=== PATIENT | female | born 1970 | race Caucasian/White ===

== ENCOUNTER → 2016-10-11 | Outpatient (CLI) | payer MEDICARE | LOC: MW.CHIM 08:00 | PROVIDERS: ATTEND Internal Medicine | DX: NODX10 (principal) ==

== ENCOUNTER → 2016-10-25 | Outpatient (CLI) | payer MEDICARE | PROVIDERS: ATTEND Nurse Practitioner Family | DX: F33.1 Major depressive disorder, recurrent, moderate (principal); F41.8 Other specified anxiety disorders | CPT/HCPCS: 99214 ==

== ENCOUNTER 2017-10-17 11:34 | Emergency (ER) | payer MEDICARE ==
--- NOTE | 2017-10-17 12:00 | EDM.PDOC ---
ED HPI GENERAL MEDICAL PROBLEM - General Chief Complaint: Eye Problems Stated Complaint: VISION ISSUES IN THE RT EYE SIDE Time Seen by Provider: 10/17/17 11:59 Source of Information: Reports: Patient - History of Present Illness INITIAL COMMENTS - FREE TEXT/NARRATIVE: HISTORY AND PHYSICAL: History of present illness: [Patient presents with visual change, she has a loss of peripheral vision both inferior and superior not a hemianopsia but certainly decreased peripheral vision she also describes flashing lights and circles of light in the periphery. She is noted to be noncompliant with her medication and Accu-Chek reveals a glucose over 500] electrolytes were managed here in the emergency room along with 2 L bolus and requiring 50 units of insulin final glucose was measured at 288 I did discussed patient case with Dr. Garzon ophthalmology , he would like to see the patient immediately to evaluate retinal the patent detachment she is currently stable with no fever nausea vomiting diarrhea constipation chest pain shortness breath headache dizziness palpitation no bowel or urine symptoms Review of systems: As per history of present illness and below otherwise all systems reviewed and negative. Past medical history: As per history of present illness and as reviewed below otherwise noncontributory. Surgical history: As per history of present illness and as reviewed below otherwise noncontributory. Social history: No reported history of drug or alcohol abuse. Family history: As per history of present illness and as reviewed below otherwise noncontributory. Physical exam: HEENT: Atraumatic, normocephalic, pupils reactive, negative for conjunctival pallor or scleral icterus, mucous membranes moist, throat clear, neck supple, nontender, trachea midline. Lungs: Clear to auscultation, breath sounds equal bilaterally, chest nontender. Heart: S1S2, regular, negative for clicks, rubs, or JVD. Abdomen: Soft, nondistended, nontender. Negative for masses or hepatosplenomegaly. Negative for costovertebral tenderness. Pelvis: Stable nontender. Genitourinary: Deferred. Rectal: Deferred. Extremities: Atraumatic, negative for cords or calf pain. Neurovascular unremarkable. Neuro: Awake, alert, oriented. Cranial nerves II through XII unremarkable. Cerebellum unremarkable. Motor and sensory unremarkable throughout. Exam nonfocal. Diagnostics: [Head CT no contrast Accu-Chek CBC CMP troponin UA EKG Chest 1 view ] Therapeutics: [ saline bolus 2 Regular insulin 10 units subcutaneous/10 units IV Accu-Chek greater than 500 ] Regular insulin 10 units subcutaneous/10 units IV repeated Accu-Chek 476 Patient goal travel directly over to [facility] to see Dr. Garzon, she may return to ER as needed otherwise she will have follow-up appointment with her primary is already scheduled for next week, patient encouraged take her medication as directed Impression: Rule out retinal detachment [ hyperglycemia-improved Medication noncompliance] Definitive disposition and diagnosis as appropriate pending reevaluation and review of above. Headache Pain Score (Numeric/FACES): 5 - Related Data Allergies Allergy/AdvReac Type Severity Reaction Status Date / Time bupropion HCl Allergy Bradycardia Verified 10/17/17 11:48 [From Wellbutrin] erythromycin base Allergy Stomach Verified 10/17/17 11:48 [Erythromycin Base] Ache lisinopril Allergy Tachycardia Verified 10/17/17 11:48 Home Meds: Home Meds Dasatinib [Sprycel] 100 mg PO DAILY 02/16/16 [History] Insulin Detemir [Levemir] 28 unit SUBCUT BID 02/16/16 [History] Pregabalin [Lyrica] 2 tab PO DAILY 02/16/16 [History] metFORMIN HCl [Metformin HCl ER] 1,000 mg PO BID 02/16/16 [History] Exenatide Microspheres [Bydureon Pen] 2 mg SQ WEEKLY 02/17/16 [History] Losartan [Cozaar] 50 mg PO DAILY 02/17/16 [History] HYDROmorphone [Dilaudid] 1 - 4 tab PO DAILY PRN 09/02/16 [History] Mirtazapine 45 mg PO DAILY 10/17/17 [History] Past Medical History HEENT History: Reports: Impaired Vision Other HEENT History: uses eyeglasses Cardiovascular History: Reports: High Cholesterol, Hypertension Gastrointestinal History: Reports: Cholelithiasis, Gastritis Genitourinary History: Reports: Renal Calculus 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 OB/BYN History: 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 in July 2012 Musculoskeletal History: Reports: Arthritis, Back Pain, Chronic Neurological History: Reports: Neuropathy, Peripheral Other Neuro History: peripheral neuropathy Psychiatric History: Reports: Depression Endocrine/Metabolic History: Reports: Diabetes, Type II Oncologic (Cancer) History: Reports: Leukemia Dermatologic History: 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 (See Below) Other Dermatologic History: santiago - Infectious Disease History Infectious Disease History: Reports: Chicken Pox - Past Surgical History HEENT Surgical History: Reports: Cataract Surgery GI Surgical History: Reports: Cholecystectomy, Hernia, Abdominal Social & Family History - Family History Family Medical History: Noncontributory Neurological: Reports: CVA Endocrine/Metabolic: Reports: Diabetes, type II - Tobacco Use Smoking Status *Q: Never Smoker Second Hand Smoke Exposure: No - Caffeine Use Caffeine Use: Reports: None - Alcohol Use Days Per Week of Alcohol Use: 0 Number of Drinks Per Day: 0 Total Drinks Per Week: 0 - Recreational Drug Use Recreational Drug Use: No Drug Use in Last 12 Months: No ED ROS GENERAL - Review of Systems Review Of Systems: ROS reveals no pertinent complaints other than HPI. ED EXAM GENERAL W FULL EYE - Physical Exam Exam: See Below Course - Vital Signs Last Recorded V/S: Last Vital Signs Temp 96.1 F 10/17/17 11:46 Pulse 109 H 10/17/17 15:49 Resp 18 10/17/17 15:49 BP 135/85 10/17/17 15:49 Pulse Ox 95 10/17/17 15:49 - Orders/Labs/Meds Orders: Active Orders 24 hr Category Date Time Status Accu Check [Blood Glucose Check, Bedside] [RC] ONETIME Care 10/17/17 11:59 Active EKG Documentation Completion [RC] STAT Care 10/17/17 12:06 Active UA W/MICROSCOPIC [URIN] Stat Lab 10/17/17 14:19 Ordered Labs: Laboratory Tests 10/17/17 10/17/17 10/17/17 Range/Units 12:02 12:09 12:09 WBC 8.97 (4.0-11.0) K/uL RBC 4.90 (4.30-5.90) M/uL Hgb 14.6 (12.0-16.0) g/dL Hct 42.1 (36.0-46.0) % MCV 85.9 (80.0-98.0) fL MCH 29.8 (27.0-32.0) pg MCHC 34.7 (31.0-37.0) g/dL RDW Std Deviation 43.3 (28.0-62.0) fl RDW Coeff of Amol 14 (11.0-15.0) % Plt Count 205 (150-400) K/uL MPV 11.10 (7.40-12.00) fL Add Manual Diff YES Neutrophils % (Manual) 56 (48.0-80.0) % Band Neutrophils % 3 % Lymphocytes % (Manual) 28 (16.0-40.0) % Monocytes % (Manual) 3 (0.0-15.0) % Eosinophils % (Manual) 8 H (0.0-7.0) % Basophils % (Manual) 2 H (0.0-1.5) % Nucleated RBC % 0.0 /100WBC Absolute Seg Neuts 5.0 (1.4-5.7) Band Neutrophils # 0.3 Lymphocytes # (Manual) 2.5 H (0.6-2.4) Monocytes # (Manual) 0.3 (0.0-0.8) Eosinophils # (Manual) 0.7 (0.0-0.7) Basophils # (Manual) 0.2 H (0.0-0.1) Nucleated RBCs # 0 K/uL Sodium 126 L (136-145) mmol/L Potassium 4.6 (3.5-5.1) mmol/L Chloride 91 L (98-107) mmol/L Carbon Dioxide 20.5 L (21.0-32.0) mmol/L BUN 10 (7.0-18.0) mg/dL Creatinine 0.9 (0.6-1.0) mg/dL Est Cr Clr Drug Dosing TNP Estimated GFR (MDRD) > 60.0 ml/min Glucose 663 H* (74-106) mg/dL POC Glucose > 500 H (60-110) mg/dL Calcium 8.7 (8.5-10.1) mg/dL Total Bilirubin 0.4 (0.2-1.0) mg/dL AST 47 H (15-37) IU/L ALT 62 (14-63) IU/L Alkaline Phosphatase 191 H (46-116) U/L Troponin I < 0.050 (0.000-0.056) ng/mL Total Protein 6.4 (6.4-8.2) g/dL Albumin 3.1 L (3.4-5.0) g/dL Globulin 3.3 (2.0-3.5) g/dL Albumin/Globulin Ratio 0.9 L (1.3-2.8) Urine Color Urine Appearance Urine pH (5.0-8.0) Ur Specific [place] (1.001-1.035) Urine Protein (NEGATIVE) mg/dL Urine Glucose (UA) (NEGATIVE) mg/dL Urine Ketones (NEGATIVE) mg/dL Urine Occult Blood (NEGATIVE) Urine Nitrite (NEGATIVE) Urine Bilirubin (NEGATIVE) Urine Urobilinogen (<2.0) EU/dL Ur Leukocyte Esterase (NEGATIVE) Urine RBC (0-2/HPF) Urine WBC (0-5/HPF) Ur Epithelial Cells (NONE-FEW) Urine Bacteria (NEGATIVE) 10/17/17 10/17/17 10/17/17 Range/Units 12:49 13:25 13:58 WBC (4.0-11.0) K/uL RBC (4.30-5.90) M/uL Hgb (12.0-16.0) g/dL Hct (36.0-46.0) % MCV (80.0-98.0) fL MCH (27.0-32.0) pg MCHC (31.0-37.0) g/dL RDW Std Deviation (28.0-62.0) fl RDW Coeff of Amol (11.0-15.0) % Plt Count (150-400) K/uL MPV (7.40-12.00) fL Add Manual Diff Neutrophils % (Manual) (48.0-80.0) % Band Neutrophils % % Lymphocytes % (Manual) (16.0-40.0) % Monocytes % (Manual) (0.0-15.0) % Eosinophils % (Manual) (0.0-7.0) % Basophils % (Manual) (0.0-1.5) % Nucleated RBC % /100WBC Absolute Seg Neuts (1.4-5.7) Band Neutrophils # Lymphocytes # (Manual) (0.6-2.4) Monocytes # (Manual) (0.0-0.8) Eosinophils # (Manual) (0.0-0.7) Basophils # (Manual) (0.0-0.1) Nucleated RBCs # K/uL Sodium (136-145) mmol/L Potassium (3.5-5.1) mmol/L Chloride (98-107) mmol/L Carbon Dioxide (21.0-32.0) mmol/L BUN (7.0-18.0) mg/dL Creatinine (0.6-1.0) mg/dL Est Cr Clr Drug Dosing Estimated GFR (MDRD) ml/min Glucose (74-106) mg/dL POC Glucose 476 H 410 H 336 H (60-110) mg/dL Calcium (8.5-10.1) mg/dL Total Bilirubin (0.2-1.0) mg/dL AST (15-37) IU/L ALT (14-63) IU/L Alkaline Phosphatase (46-116) U/L Troponin I (0.000-0.056) ng/mL Total Protein (6.4-8.2) g/dL Albumin (3.4-5.0) g/dL Globulin (2.0-3.5) g/dL Albumin/Globulin Ratio (1.3-2.8) Urine Color Urine Appearance Urine pH (5.0-8.0) Ur Specific [place] (1.001-1.035) Urine Protein (NEGATIVE) mg/dL Urine Glucose (UA) (NEGATIVE) mg/dL Urine Ketones (NEGATIVE) mg/dL Urine Occult Blood (NEGATIVE) Urine Nitrite (NEGATIVE) Urine Bilirubin (NEGATIVE) Urine Urobilinogen (<2.0) EU/dL Ur Leukocyte Esterase (NEGATIVE) Urine RBC (0-2/HPF) Urine WBC (0-5/HPF) Ur Epithelial Cells (NONE-FEW) Urine Bacteria (NEGATIVE) 10/17/17 10/17/17 10/17/17 Range/Units 14:19 14:32 15:47 WBC (4.0-11.0) K/uL RBC (4.30-5.90) M/uL Hgb (12.0-16.0) g/dL Hct (36.0-46.0) % MCV (80.0-98.0) fL MCH (27.0-32.0) pg MCHC (31.0-37.0) g/dL RDW Std Deviation (28.0-62.0) fl RDW Coeff of Amol (11.0-15.0) % Plt Count (150-400) K/uL MPV (7.40-12.00) fL Add Manual Diff Neutrophils % (Manual) (48.0-80.0) % Band Neutrophils % % Lymphocytes % (Manual) (16.0-40.0) % Monocytes % (Manual) (0.0-15.0) % Eosinophils % (Manual) (0.0-7.0) % Basophils % (Manual) (0.0-1.5) % Nucleated RBC % /100WBC Absolute Seg Neuts (1.4-5.7) Band Neutrophils # Lymphocytes # (Manual) (0.6-2.4) Monocytes # (Manual) (0.0-0.8) Eosinophils # (Manual) (0.0-0.7) Basophils # (Manual) (0.0-0.1) Nucleated RBCs # K/uL Sodium (136-145) mmol/L Potassium (3.5-5.1) mmol/L Chloride (98-107) mmol/L Carbon Dioxide (21.0-32.0) mmol/L BUN (7.0-18.0) mg/dL Creatinine (0.6-1.0) mg/dL Est Cr Clr Drug Dosing Estimated GFR (MDRD) ml/min Glucose (74-106) mg/dL POC Glucose 288 H 253 H (60-110) mg/dL Calcium (8.5-10.1) mg/dL Total Bilirubin (0.2-1.0) mg/dL AST (15-37) IU/L ALT (14-63) IU/L Alkaline Phosphatase (46-116) U/L Troponin I (0.000-0.056) ng/mL Total Protein (6.4-8.2) g/dL Albumin (3.4-5.0) g/dL Globulin (2.0-3.5) g/dL Albumin/Globulin Ratio (1.3-2.8) Urine Color YELLOW Urine Appearance SLT CLOUDY Urine pH 5.0 (5.0-8.0) Ur Specific [place] 1.010 (1.001-1.035) Urine Protein 100 (NEGATIVE) mg/dL Urine Glucose (UA) >=1000 (NEGATIVE) mg/dL Urine Ketones NEGATIVE (NEGATIVE) mg/dL Urine Occult Blood SMALL H (NEGATIVE) Urine Nitrite NEGATIVE (NEGATIVE) Urine Bilirubin NEGATIVE (NEGATIVE) Urine Urobilinogen 0.2 (<2.0) EU/dL Ur Leukocyte Esterase NEGATIVE (NEGATIVE) Urine RBC 2-3 (0-2/HPF) Urine WBC 0-1 (0-5/HPF) Ur Epithelial Cells FEW (NONE-FEW) Urine Bacteria RARE (NEGATIVE) Meds: Medications Discontinued Medications Generic Name Dose Route Start Last Admin Trade Name Mayi PRN Reason Stop Dose Admin Sodium Chloride 1,000 mls @ 999 mls/hr 10/17/17 12:06 10/17/17 12:21 Normal Saline IV 10/17/17 13:06 999 mls/hr STAT ONE Administration Sodium Chloride 1,000 mls @ 999 mls/hr 10/17/17 12:49 10/17/17 12:55 Normal Saline IV 10/17/17 13:49 999 mls/hr STAT ONE Administration Insulin Human Regular 10 unit 10/17/17 12:06 10/17/17 12:18 Novolin R IVPUSH 10/17/17 12:07 10 units ONETIME ONE Administration Protocol Insulin Human Regular 10 unit 10/17/17 12:07 10/17/17 12:18 Novolin R SUBCUT 10/17/17 12:08 10 units NOW STA Administration Protocol Insulin Human Regular 10 unit 10/17/17 12:49 10/17/17 12:56 Novolin R IVPUSH 10/17/17 12:50 10 units ONETIME ONE Administration Protocol Insulin Human Regular 10 unit 10/17/17 12:50 10/17/17 12:56 Novolin R SUBCUT 10/17/17 12:51 10 units NOW STA Administration Protocol Insulin Human Regular 10 unit 10/17/17 13:51 10/17/17 13:58 Novolin R IVPUSH 10/17/17 13:52 10 units ONETIME ONE Administration Protocol Departure - Departure Time of Disposition: 15:58 Disposition: DC/Tfer to Other 70 Condition: Fair Clinical Impression: Hyperglycemia, Visual changes - Discharge Information Referrals: Estee Valles EQUIPMENT MAINTENANCE TECH [Primary Care Provider] - Forms: ED Department Discharge Additional Instructions: Proceed directly over to [facility] Dr. Garzon ophthalmology to evaluate for possible retinal detachment as discussed The following information is given to patients seen in the emergency department who are being discharged to home. This information is to outline your options for follow-up care. We provide all patients seen in our emergency department with a follow-up referral. The need for follow-up, as well as the timing and circumstances, are variable depending upon the specifics of your emergency department visit. If you don't have a primary care physician on staff, we will provide you with a referral. We always advise you to contact your personal physician following an emergency department visit to inform them of the circumstance of the visit and for follow-up with them and/or the need for any referrals to a consulting specialist. The emergency department will also refer you to a specialist when appropriate. This referral assures that you have the opportunity for follow-up care with a specialist. All of these measure are taken in an effort to provide you with optimal care, which includes your follow-up. Under all circumstances we always encourage you to contact your private physician who remains a resource for coordinating your care. When calling for follow-up care, please make the office aware that this follow-up is from your recent emergency room visit. If for any reason you are refused follow-up, please contact the [facility] emergency department at and asked to speak to the emergency department charge nurse. - My Orders Last 24 Hours: My Active Orders 10/17/17 11:59 Accu Check [Blood Glucose Check, Bedside] [RC] ONETIME 10/17/17 12:06 EKG Documentation Completion [RC] STAT 10/17/17 14:19 UA W/MICROSCOPIC [URIN] Stat - Assessment/Plan Last 24 Hours: My Active Orders 10/17/17 11:59 Accu Check [Blood Glucose Check, Bedside] [RC] ONETIME 10/17/17 12:06 EKG Documentation Completion [RC] STAT 10/17/17 14:19 UA W/MICROSCOPIC [URIN] Stat
[2017-10-17] MEDS ORDERED: Insulin Regular, Human 100 Units/ML 10 ML Vial IVPUSH ONE ×3 (12:06→13:51)
[2017-10-17] MEDS ORDERED: Sodium Chloride 0.9% 1,000 ML IV ONE ×2 (12:06→12:49)
[2017-10-17] MEDS ORDERED: Insulin Regular, Human 100 Units/ML 10 ML Vial SUBCUT STA ×2 (12:07→12:50)
[2017-10-17 13:06] LABS: CHLORIDE,CL 91 mmol/L (98-107)
--- NOTE | 2017-10-17 13:48 | CT ---
EXAMINATION: Non contrast CT head. Coronal and sagittal reformats. HISTORY: Pain FINDINGS: No evidence of intra or extra axial hemorrhage, mass, midline shift, hydrocephalus or edema. No hypoattenuation changes in the major vascular territories to suggest acute infarct. No abnormal intracranial calcifications are detected. No evidence of substantial vascular calcificat ions. Large mucous retention cyst within the right maxillary sinus. Mastoid air cells and middle ears are c lear. Orbits and globes are symmetric. Pituitary fossa appears unremarkable. Calvarium is intact. No evidence of skull fracture. IMPRESSION: 1. No acute intracranial findings. 2. Right maxillary mucous retention cyst.
--- NOTE | 2017-10-17 13:53 | CR ---
EXAMINATION: PA chest radiograph. HISTORY: Pain. FINDINGS: The trachea is midline. The cardiomediastinal silhouette is within normal limits. No pulmonary infilt rates, effusions or pneumothorax. Old calcified granuloma in the right upper lobe. Osseous structures appear unremarkable. IMPRESSION: No acute cardiopulmonary process.
[2017-10-17 14:31] LABS: SODIUM,NA 126 mmol/L (136-145)
[2017-10-17 18:41] VITALS: BP 124/77
== END 2017-10-17 16:30 | disposition other institution (70) ==
LOC: MW.ED 11:34
DX: E11.65 Type 2 diabetes mellitus with hyperglycemia (principal); H53.9 Unspecified visual disturbance; E11.42 Type 2 diabetes mellitus with diabetic polyneuropathy; E78.00 Pure hypercholesterolemia, unspecified; I10 Essential (primary) hypertension; Z91.19 Patient's noncompliance with other medical treatment and regimen; Z88.8 Allergy status to other drugs, medicaments and biological substances; Z88.1 Allergy status to other antibiotic agents; Z79.4 Long term (current) use of insulin; Z79.899 Other long term (current) drug therapy; Z79.891 Long term (current) use of opiate analgesic
CPT/HCPCS: 70450; 71045; 80053; 81001; 82962; 84484; 85025; 93005; 96361; 96372; 96374; 96376; 99285; J1815; J7040; 99283

== ENCOUNTER 2017-10-19 10:56 | Inpatient (IN) | payer MEDICARE ==
[2017-10-19] MEDS ORDERED: Ondansetron 4 MG/2 ML SDV IVPUSH ONE (11:07)
[2017-10-19] MEDS ORDERED: Sodium Chloride 0.9% 1,000 ML IV ONE (11:07)
[2017-10-19] MEDS ORDERED: Insulin Regular, Human 100 Units/ML 10 ML Vial IVPUSH ONE ×2 (11:20→12:05)
[2017-10-19] MEDS ORDERED: Insulin Regular, Human 100 Units/ML 10 ML Vial SUBCUT STA (11:20)
[2017-10-19] MEDS ORDERED: Ondansetron 4 MG/2 ML SDV ONE (11:21)
--- NOTE | 2017-10-19 11:23 | EDM.PDOC ---
ED HPI GENERAL MEDICAL PROBLEM - General Chief Complaint: Headache Stated Complaint: HEADACHES, PASSING OUT Time Seen by Provider: 10/19/17 11:21 Source of Information: Reports: Patient - History of Present Illness INITIAL COMMENTS - FREE TEXT/NARRATIVE: HISTORY AND PHYSICAL: History of present illness: Patient with history of uncontrolled diabetes and hyponatremia presents as above She was in a few days ago with visual symptoms I did correct her glucose and she followe with ophthalmology to rule out retinal detachment, she has been cleared from this standpoint. However she presents with headache dizziness and a fall today no fever vomiting chills sweats no chest pain shortness of breath palpitation no bowel or urine symptoms Review of systems: As per history of present illness and below otherwise all systems reviewed and negative. Past medical history: As per history of present illness and as reviewed below otherwise noncontributory. Surgical history: As per history of present illness and as reviewed below otherwise noncontributory. Social history: No reported history of drug or alcohol abuse. Family history: As per history of present illness and as reviewed below otherwise noncontributory. Physical exam: HEENT: Atraumatic, normocephalic, pupils reactive, negative for conjunctival pallor or scleral icterus, mucous membranes moist, throat clear, neck supple, nontender, trachea midline. Lungs: Clear to auscultation, breath sounds equal bilaterally, chest nontender. Heart: S1S2, regular, negative for clicks, rubs, or JVD. Abdomen: Soft, nondistended, nontender. Negative for masses or hepatosplenomegaly. Negative for costovertebral tenderness. Pelvis: Stable nontender. Genitourinary: Deferred. Rectal: Deferred. Extremities: Atraumatic, negative for cords or calf pain. Neurovascular unremarkable. Neuro: Awake, alert, oriented. Cranial nerves II through XII unremarkable. Cerebellum unremarkable. Motor and sensory unremarkable throughout. Exam nonfocal. Diagnostics: [ Accu-Chek greater than 500 CBC CMP troponin EKG Chest 1 view ABG ] Therapeutics: [Liter normal saline bolus Insulin 10 units IV/10 units subcutaneous Accu-Chek remains greater than 530 minutes after 20 units Insulin 10/10 repeated ] Impression: [ hyperglycemia dehydration Chronic history of baseline ] Definitive disposition and diagnosis as appropriate pending reevaluation and review of above. Treatments POSSUM TRAPPER: Reports: Acetaminophen Posterior Headache Pain Score (Numeric/FACES): 10 - Related Data Allergies Allergy/AdvReac Type Severity Reaction Status Date / Time bupropion HCl Allergy Bradycardia Verified 10/17/17 11:48 [From Wellbutrin] erythromycin base Allergy Stomach Verified 10/17/17 11:48 [Erythromycin Base] Ache lisinopril Allergy Tachycardia Verified 10/17/17 11:48 Home Meds: Home Meds Dasatinib [Sprycel] 100 mg PO DAILY 02/16/16 [History] metFORMIN HCl [Metformin HCl ER] 1,000 mg PO BID 02/16/16 [History] Losartan [Cozaar] 50 mg PO DAILY 02/17/16 [History] Mirtazapine 45 mg PO DAILY 10/17/17 [History] Past Medical History HEENT History: Reports: Impaired Vision Other HEENT History: uses eyeglasses Cardiovascular History: Reports: High Cholesterol, Hypertension Gastrointestinal History: Reports: Cholelithiasis, Gastritis Genitourinary History: Reports: Renal Calculus 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 OB/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 History: 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 in July 2012 Musculoskeletal History: Reports: Arthritis, Back Pain, Chronic Neurological History: Reports: Neuropathy, Peripheral Other Neuro History: peripheral neuropathy Psychiatric History: Reports: Anxiety, Depression Endocrine/Metabolic History: Reports: Diabetes, Type II Other Endocrine/Metabolic History: pt states it is very uncontrolled Oncologic (Cancer) History: Reports: Leukemia Dermatologic History: 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 (See Below) Other Dermatologic History: santiago - Infectious Disease History Infectious Disease History: Reports: Chicken Pox - Past Surgical History HEENT Surgical History: Reports: Cataract Surgery GI Surgical History: Reports: Cholecystectomy, Hernia, Abdominal Other GI Surgeries/Procedures: hernia surgery x2 Social & Family History - Family History Family Medical History: Noncontributory Neurological: Reports: CVA Endocrine/Metabolic: Reports: Diabetes, type II - Tobacco Use Smoking Status *Q: Former Smoker Years of Tobacco use: 1 Packs/Tins Daily: 0.5 Used Tobacco, but Quit: Yes Month/Year Tobacco Last Used: 10/2015 Second Hand Smoke Exposure: No - Caffeine Use Caffeine Use: Reports: Coffee - Alcohol Use Days Per Week of Alcohol Use: 0 Number of Drinks Per Day: 0 Total Drinks Per Week: 0 - Recreational Drug Use Recreational Drug Use: No Drug Use in Last 12 Months: No ED ROS GENERAL - Review of Systems Review Of Systems: ROS reveals no pertinent complaints other than HPI. ED EXAM, GENERAL - Physical Exam Exam: See Below Course - Vital Signs Last Recorded V/S: Last Vital Signs Temp 97.9 F 10/19/17 10:59 Pulse 127 H 10/19/17 10:59 Resp 22 H 10/19/17 10:59 BP 170/104 H 10/19/17 10:59 Pulse Ox 100 10/19/17 10:59 - Orders/Labs/Meds Orders: Active Orders 24 hr Category Date Time Status Accu Check [Blood Glucose Check, Bedside] [RC] ONETIME Care 10/19/17 11:08 Active UA W/MICROSCOPIC [URIN] Stat Lab 10/19/17 11:07 Ordered Insulin Regular, Human [NovoLIN R] Med 10/19/17 17:00 Active 10 unit SUBCUT QIDACANDBED Medication Orders Insulin Human Regular (Novolin R) 10 unit SUBCUT QIDACANDBED COUNT INCLUDES THE [facility]; Protocol Labs: Laboratory Tests 10/19/17 10/19/17 10/19/17 Range/Units 11:10 11:10 11:25 WBC 9.81 (4.0-11.0) K/uL RBC 5.08 (4.30-5.90) M/uL Hgb 14.9 (12.0-16.0) g/dL Hct 44.8 (36.0-46.0) % MCV 88.2 (80.0-98.0) fL MCH 29.3 (27.0-32.0) pg MCHC 33.3 (31.0-37.0) g/dL RDW Std Deviation 44.6 (28.0-62.0) fl RDW Coeff of Amol 14 (11.0-15.0) % Plt Count 224 (150-400) K/uL MPV 10.70 (7.40-12.00) fL Add Manual Diff YES Neutrophils % (Manual) 54 (48.0-80.0) % Band Neutrophils % 7 % Lymphocytes % (Manual) 31 (16.0-40.0) % Monocytes % (Manual) 2 (0.0-15.0) % Eosinophils % (Manual) 3 (0.0-7.0) % Basophils % (Manual) 3 H (0.0-1.5) % Nucleated RBC % 0.0 /100WBC Absolute Seg Neuts 5.3 (1.4-5.7) Band Neutrophils # 0.7 Lymphocytes # (Manual) 3.0 H (0.6-2.4) Monocytes # (Manual) 0.2 (0.0-0.8) Eosinophils # (Manual) 0.3 (0.0-0.7) Basophils # (Manual) 0.3 H (0.0-0.1) Nucleated RBCs # 0 K/uL ABG pH 7.506 H (7.35-7.45) ABG pCO2 25 L (35-45) mmHG ABG pO2 90 (75-100) mmHG ABG HCO3 20 L (22-26) mEq/L ABG Total CO2 17.5 ABG Base Excess -1.4 (-2.0-2.0) Sodium 130 L (136-145) mmol/L Potassium 3.7 (3.5-5.1) mmol/L Chloride 92 L (98-107) mmol/L Carbon Dioxide 21.0 (21.0-32.0) mmol/L BUN 7 (7.0-18.0) mg/dL Creatinine 1.1 H (0.6-1.0) mg/dL Est Cr Clr Drug Dosing 65.15 mL/min Estimated GFR (MDRD) 53.7 ml/min Glucose 639 H* (74-106) mg/dL Calcium 8.7 (8.5-10.1) mg/dL Total Bilirubin 0.3 (0.2-1.0) mg/dL AST 46 H (15-37) IU/L ALT 62 (14-63) IU/L Alkaline Phosphatase 122 H (46-116) U/L Troponin I < 0.050 (0.000-0.056) ng/mL Total Protein 6.8 (6.4-8.2) g/dL Albumin 3.0 L (3.4-5.0) g/dL Globulin 3.8 H (2.0-3.5) g/dL Albumin/Globulin Ratio 0.8 L (1.3-2.8) Meds: Medications Generic Name Dose Route Start Last Admin Trade Name Freq PRN Reason Stop Dose Admin Insulin Human Regular 10 unit 10/19/17 17:00 Novolin R SUBCUT QIDACANDBED COUNT INCLUDES THE [facility] Protocol Discontinued Medications Generic Name Dose Route Start Last Admin Trade Name Freq PRN Reason Stop Dose Admin Sodium Chloride 1,000 mls @ 999 mls/hr 10/19/17 11:07 10/19/17 11:29 Normal Saline IV 10/19/17 12:07 999 mls/hr STAT ONE Administration Insulin Human Regular 10 unit 10/19/17 11:20 10/19/17 11:32 Novolin R IVPUSH 10/19/17 11:21 10 unit ONETIME ONE Administration Protocol Insulin Human Regular 10 unit 10/19/17 11:20 10/19/17 11:33 Novolin R SUBCUT 10/19/17 11:21 10 unit NOW STA Administration Protocol Insulin Human Regular 10 unit 10/19/17 12:05 Novolin R IVPUSH 10/19/17 12:06 ONETIME ONE Protocol Ondansetron HCl 8 mg 10/19/17 11:07 10/19/17 11:30 Zofran IVPUSH 10/19/17 11:08 8 mg ONETIME ONE Administration Ondansetron HCl Confirm 10/19/17 11:21 10/19/17 11:30 Zofran Administered 10/19/17 11:22 Not Given Dose 4 mg .ROUTE .STK-MED ONE Departure - Departure Time of Disposition: 12:14 Disposition: Admitted As Inpatient 67 Condition: Poor Clinical Impression: Hyperglycemia, Dehydration - Discharge Information Referrals: PCP,None [Primary Care Provider] - Forms: ED Department Discharge - My Orders Last 24 Hours: My Active Orders 10/19/17 11:07 UA W/MICROSCOPIC [URIN] Stat 10/19/17 11:08 Accu Check [Blood Glucose Check, Bedside] [RC] ONETIME 10/19/17 17:00 Insulin Regular, Human [NovoLIN R] 10 unit SUBCUT QIDACANDBED - Assessment/Plan Last 24 Hours: My Active Orders 10/19/17 11:07 UA W/MICROSCOPIC [URIN] Stat 10/19/17 11:08 Accu Check [Blood Glucose Check, Bedside] [RC] ONETIME 10/19/17 17:00 Insulin Regular, Human [NovoLIN R] 10 unit SUBCUT QIDACANDBED
[2017-10-19 11:49] LABS: CHLORIDE,CL 92 mmol/L (98-107); SODIUM,NA 130 mmol/L (136-145)
[2017-10-19] MEDS ORDERED: Ondansetron 4 MG/2 ML SDV IVPUSH PRN (13:09)
[2017-10-19] MEDS ORDERED: Morphine 10 MG/ML Syringe IVPUSH PRN (13:09)
[2017-10-19] MEDS ORDERED: Acetaminophen 325 MG Tab PO PRN (13:09)
[2017-10-19] MEDS ORDERED: Metoclopramide 10 MG/2 ML SDV IVPUSH PRN ×2 (13:09→13:30)
--- NOTE | 2017-10-19 13:16 | PCM.HP ---
H&P History of Present Illness - General Admit Problem/Dx: Admission Diagnosis/Problem Admission Diagnosis/Problem Hyperglycemia - History of Present Illness Initial Comments - Free Text/Narative: 46 yo female with pmh of uncontrolled diabetes. Patient reports she has not been on insulin for a month. She used to be on a pump but then "medicaid said she could not have it anymore." When she was taking subcu insulin she was on levemir 30 BID. Last she reported to the ED with a headache, blurred vision and seing colors and spots in her right peripheral vision. At the time she was noted to have blood sugars of over 600 she was given subcu insulin and discharged to have follow up the next day with opthalmology who felt she was having a migraine. She presents to the ED again today with complains of pressure in the back of her head. She denies any fevers and states she can move her neck freely and this does not feel like when she had meningitis. Her blood sugars again are noted to be above 600. Due to her headach and flashing lights she reports she has a hard time concentrating. The symptoms have been persistent for about a week. Posterior Headache Pain Score (Numeric/FACES): 10 - Related Data Allergies/Adverse Reactions: Allergies Allergy/AdvReac Type Severity Reaction Status Date / Time bupropion HCl Allergy Bradycardia Verified 10/17/17 11:48 [From Wellbutrin] erythromycin base Allergy Stomach Verified 10/17/17 11:48 [Erythromycin Base] Ache lisinopril Allergy Tachycardia Verified 10/17/17 11:48 Home Medications: Home Meds Dasatinib [Sprycel] 100 mg PO DAILY 02/16/16 [History] metFORMIN HCl [Metformin HCl ER] 1,000 mg PO BID 02/16/16 [History] Losartan [Cozaar] 50 mg PO DAILY 02/17/16 [History] Mirtazapine 45 mg PO DAILY 10/17/17 [History] Past Medical History HEENT History: Reports: Impaired Vision Other HEENT History: uses eyeglasses Cardiovascular History: Reports: High Cholesterol, Hypertension Gastrointestinal History: Reports: Cholelithiasis, Gastritis Genitourinary History: Reports: Renal Calculus 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: 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 in July 2012 Musculoskeletal History: Reports: Arthritis, Back Pain, Chronic Neurological History: Reports: Neuropathy, Peripheral Other Neuro History: peripheral neuropathy Psychiatric History: Reports: Anxiety, Depression Endocrine/Metabolic History: Reports: Diabetes, Type II Other Endocrine/Metabolic History: pt states it is very uncontrolled Oncologic (Cancer) History: Reports: Leukemia Dermatologic History: 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 (See Below) Other Dermatologic History: santiago - Infectious Disease History Infectious Disease History: Reports: Chicken Pox - Past Surgical History HEENT Surgical History: Reports: Cataract Surgery GI Surgical History: Reports: Cholecystectomy, Hernia, Abdominal Other GI Surgeries/Procedures: hernia surgery x2 Social & Family History - Family History Family Medical History: Noncontributory Neurological: Reports: CVA Endocrine/Metabolic: Reports: Diabetes, type II - Tobacco Use Smoking Status *Q: Former Smoker Years of Tobacco use: 1 Packs/Tins Daily: 0.5 Used Tobacco, but Quit: Yes Month/Year Tobacco Last Used: 10/2015 Second Hand Smoke Exposure: No - Caffeine Use Caffeine Use: Reports: Coffee - Alcohol Use Days Per Week of Alcohol Use: 0 Number of Drinks Per Day: 0 Total Drinks Per Week: 0 - Recreational Drug Use Recreational Drug Use: No Drug Use in Last 12 Months: No H&P Review of Systems - Review of Systems: Review Of Systems: ROS reveals no pertinent complaints other than HPI. Exam - Exam Exam: See Below - Vital Signs Vital Signs: Last Vital Signs Temp 36.6 C 10/19/17 10:59 Pulse 127 H 10/19/17 10:59 Resp 22 H 10/19/17 10:59 BP 170/104 H 10/19/17 10:59 Pulse Ox 100 10/19/17 10:59 Weight: 95.254 kg - Exam General: Alert, Oriented Neck: Supple, Trachea Midline, Full Range of Motion Lungs: Clear to Auscultation, Normal Respiratory Effort Cardiovascular: Regular Rate, Regular Rhythm GI/Abdominal Exam: Soft, Non-Tender Extremities: Non-Tender, No Pedal Edema Skin: Warm, Dry, Intact Neurological: Cranial Nerves Intact, Reflexes Equal Bilateral, Strength Equal Bilateral, Normal Speech, Normal Tone, Sensation Intact. No: Focal Deficit - Patient Data Lab Results Last 24 hrs: Laboratory Results - last 24 hr 10/19/17 10/19/17 10/19/17 Range/Units 11:10 11:10 11:25 WBC 9.81 (4.0-11.0) K/uL RBC 5.08 (4.30-5.90) M/uL Hgb 14.9 (12.0-16.0) g/dL Hct 44.8 (36.0-46.0) % MCV 88.2 (80.0-98.0) fL MCH 29.3 (27.0-32.0) pg MCHC 33.3 (31.0-37.0) g/dL RDW Std Deviation 44.6 (28.0-62.0) fl RDW Coeff of Amol 14 (11.0-15.0) % Plt Count 224 (150-400) K/uL MPV 10.70 (7.40-12.00) fL Add Manual Diff YES Neutrophils % (Manual) 54 (48.0-80.0) % Band Neutrophils % 7 % Lymphocytes % (Manual) 31 (16.0-40.0) % Monocytes % (Manual) 2 (0.0-15.0) % Eosinophils % (Manual) 3 (0.0-7.0) % Basophils % (Manual) 3 H (0.0-1.5) % Nucleated RBC % 0.0 /100WBC Absolute Seg Neuts 5.3 (1.4-5.7) Band Neutrophils # 0.7 Lymphocytes # (Manual) 3.0 H (0.6-2.4) Monocytes # (Manual) 0.2 (0.0-0.8) Eosinophils # (Manual) 0.3 (0.0-0.7) Basophils # (Manual) 0.3 H (0.0-0.1) Nucleated RBCs # 0 K/uL ABG pH 7.506 H (7.35-7.45) ABG pCO2 25 L (35-45) mmHG ABG pO2 90 (75-100) mmHG ABG HCO3 20 L (22-26) mEq/L ABG Total CO2 17.5 ABG Base Excess -1.4 (-2.0-2.0) Sodium 130 L (136-145) mmol/L Potassium 3.7 (3.5-5.1) mmol/L Chloride 92 L (98-107) mmol/L Carbon Dioxide 21.0 (21.0-32.0) mmol/L BUN 7 (7.0-18.0) mg/dL Creatinine 1.1 H (0.6-1.0) mg/dL Est Cr Clr Drug Dosing 65.15 mL/min Estimated GFR (MDRD) 53.7 ml/min Glucose 639 H* (74-106) mg/dL Calcium 8.7 (8.5-10.1) mg/dL Total Bilirubin 0.3 (0.2-1.0) mg/dL AST 46 H (15-37) IU/L ALT 62 (14-63) IU/L Alkaline Phosphatase 122 H (46-116) U/L Troponin I < 0.050 (0.000-0.056) ng/mL Total Protein 6.8 (6.4-8.2) g/dL Albumin 3.0 L (3.4-5.0) g/dL Globulin 3.8 H (2.0-3.5) g/dL Albumin/Globulin Ratio 0.8 L (1.3-2.8) Urine Color Urine Appearance Urine pH (5.0-8.0) Ur Specific [place] (1.001-1.035) Urine Protein (NEGATIVE) mg/dL Urine Glucose (UA) (NEGATIVE) mg/dL Urine Ketones (NEGATIVE) mg/dL Urine Occult Blood (NEGATIVE) Urine Nitrite (NEGATIVE) Urine Bilirubin (NEGATIVE) Urine Urobilinogen (<2.0) EU/dL Ur Leukocyte Esterase (NEGATIVE) Urine RBC (0-2/HPF) Urine WBC (0-5/HPF) Ur Epithelial Cells (NONE-FEW) Amorphous Sediment (NEGATIVE) Urine Bacteria (NEGATIVE) Urine Yeast 10/19/17 Range/Units 12:45 WBC (4.0-11.0) K/uL RBC (4.30-5.90) M/uL Hgb (12.0-16.0) g/dL Hct (36.0-46.0) % MCV (80.0-98.0) fL MCH (27.0-32.0) pg MCHC (31.0-37.0) g/dL RDW Std Deviation (28.0-62.0) fl RDW Coeff of Amol (11.0-15.0) % Plt Count (150-400) K/uL MPV (7.40-12.00) fL Add Manual Diff Neutrophils % (Manual) (48.0-80.0) % Band Neutrophils % % Lymphocytes % (Manual) (16.0-40.0) % Monocytes % (Manual) (0.0-15.0) % Eosinophils % (Manual) (0.0-7.0) % Basophils % (Manual) (0.0-1.5) % Nucleated RBC % /100WBC Absolute Seg Neuts (1.4-5.7) Band Neutrophils # Lymphocytes # (Manual) (0.6-2.4) Monocytes # (Manual) (0.0-0.8) Eosinophils # (Manual) (0.0-0.7) Basophils # (Manual) (0.0-0.1) Nucleated RBCs # K/uL ABG pH (7.35-7.45) ABG pCO2 (35-45) mmHG ABG pO2 (75-100) mmHG ABG HCO3 (22-26) mEq/L ABG Total CO2 ABG Base Excess (-2.0-2.0) Sodium (136-145) mmol/L Potassium (3.5-5.1) mmol/L Chloride (98-107) mmol/L Carbon Dioxide (21.0-32.0) mmol/L BUN (7.0-18.0) mg/dL Creatinine (0.6-1.0) mg/dL Est Cr Clr Drug Dosing mL/min Estimated GFR (MDRD) ml/min Glucose (74-106) mg/dL Calcium (8.5-10.1) mg/dL Total Bilirubin (0.2-1.0) mg/dL AST (15-37) IU/L ALT (14-63) IU/L Alkaline Phosphatase (46-116) U/L Troponin I (0.000-0.056) ng/mL Total Protein (6.4-8.2) g/dL Albumin (3.4-5.0) g/dL Globulin (2.0-3.5) g/dL Albumin/Globulin Ratio (1.3-2.8) Urine Color YELLOW Urine Appearance SLT CLOUDY Urine pH 5.5 (5.0-8.0) Ur Specific [place] 1.010 (1.001-1.035) Urine Protein 100 (NEGATIVE) mg/dL Urine Glucose (UA) >=1000 (NEGATIVE) mg/dL Urine Ketones 15 H (NEGATIVE) mg/dL Urine Occult Blood TRACE-INTACT (NEGATIVE) Urine Nitrite NEGATIVE (NEGATIVE) Urine Bilirubin NEGATIVE (NEGATIVE) Urine Urobilinogen 0.2 (<2.0) EU/dL Ur Leukocyte Esterase TRACE (NEGATIVE) Urine RBC 1-2 (0-2/HPF) Urine WBC 2-6 (0-5/HPF) Ur Epithelial Cells MODERATE (NONE-FEW) Amorphous Sediment FEW (NEGATIVE) Urine Bacteria FEW (NEGATIVE) Urine Yeast FEW Result Diagrams: 10/19/17 11:10 10/19/17 11:10 Problem List Initiated/Reviewed/Updated: Yes Orders Last 24hrs: Active Orders 24 hr Category Date Time Status Admission Status [Patient Status] [ADT] Stat ADT 10/19/17 12:18 Active Accu Check [Blood Glucose Check, Bedside] [RC] ONETIME Care 10/19/17 11:08 Active Oxygen Therapy [RC] PRN Care 10/19/17 13:09 Ordered Up ad My [RC] ASDIRECTED Care 10/19/17 13:09 Ordered VTE/DVT Education [RC] PER UNIT ROUTINE Care 10/19/17 13:09 Ordered Vital Signs [RC] Q4H Care 10/19/17 13:09 Ordered [employer] Diet [DIET] Diet 10/19/17 Breakfast Ordered Head wo Cont [CT] Stat Exams 10/19/17 12:56 Ordered BASIC METABOLIC PANEL,BMP [CHEM] AM Lab 10/20/17 05:11 Ordered CBC W/O DIFF,HEMOGRAM [HEME] AM Lab 10/20/17 05:11 Ordered UA W/MICROSCOPIC [URIN] Stat Lab 10/19/17 12:45 Ordered Acetaminophen [Tylenol] Med 10/19/17 13:09 Ordered 650 mg PO Q4H PRN Insulin Regular, Human [NovoLIN R] Med 10/19/17 17:00 Active 10 unit SUBCUT QIDACANDBED Insulin Regular, Human [NovoLIN R] 100 unit Med 10/19/17 12:15 Active Sodium Chloride 0.9% [Normal Saline] 99 ml IV TITRATE Metoclopramide [Reglan] Med 10/19/17 13:09 Ordered 10 mg IVPUSH Q4H PRN Morphine Med 10/19/17 13:09 Ordered 2 mg IVPUSH Q2H PRN Ondansetron [Zofran] Med 10/19/17 13:09 Ordered 4 mg IVPUSH Q4H PRN Sodium Chloride 0.9% @ 125 MLS/HR (1,000ml) Med 10/19/17 13:15 Ordered Sodium Chloride 0.9% [Normal Saline] 1,000 ml IV ASDIRECTED Sequential Compression Device [OM.PC] Per Unit Routine Oth 10/19/17 13:10 Ordered Resuscitation Status Routine Resus Stat 10/19/17 13:09 Ordered Medication Orders Insulin Human Regular 100 unit (/ Sodium Chloride) 100 mls @ 5 mls/hr IV TITRATE ELVA; Protocol Last Admin: 10/19/17 12:24 Dose: 5 unit/hr, 5 mls/hr Sodium Chloride (Normal Saline) 1,000 mls @ 125 mls/hr IV ASDIRECTED ELVA Insulin Human Regular (Novolin R) 10 unit SUBCUT QIDACANDBED ELVA; Protocol Assessment/Plan Comment:: 46 yo female who presents with migraine and hyperglycemia Hyperglycemia: will place on insulin drip with IV fluids to help bring down glucose more controllable as it appears she will require high doses of insulin Will order CT head as patient reported a fall prior to last CT. Continue abortive therapy for migraine
[2017-10-19] MEDS: Sodium Chloride 0.9% 1,000 ML IV SCH ×2 (13:26→20:30)
[2017-10-19] MEDS ORDERED: Insulin Regular, Human 100 Units/ML 10 ML Vial SCH (14:45)
[2017-10-19] MEDS ORDERED: Insulin Regular, Human 100 Units/ML 10 ML Vial SUBCUT SCH (17:00)
[2017-10-20] MEDS: Sodium Chloride 0.9% 1,000 ML IV SCH ×2 (04:33→11:44)
[2017-10-20 06:20] LABS: CHLORIDE,CL 104 mmol/L (98-107); SODIUM,NA 138 mmol/L (136-145)
[2017-10-20] MEDS ORDERED: Insulin Detemir 100 Units/ML 3 ML Pen SUBCUT SCH ×2 (07:30)
[2017-10-20] MEDS ORDERED: Insulin Aspart 100 Units/ML 3 ML Pen SUBCUT SCH (11:30)
[2017-10-20 11:59] VITALS: BP 138/93
--- NOTE | 2017-10-20 14:08 | PCM.DCSUM1 ---
Discharge Summary - Discharge Data Discharge Date: 10/20/17 Discharge Disposition: Home, Self-Care 01 Condition: Good - Patient Summary/Data Hospital Course: Admission diagnosis Migraine Hyperglycemia Dehydration uncontrolled type 2 DM Hospital course 46 yo female with pmh of uncontrolled diabetes as patient reports she stopped taking insulin a month ago. She has had two visits to the ED this week due to headache with aura. She was admitted due to hyperglycemia and dehydration with migraine. Her blood sugars on presentation was over 600. She was treated with IV fluids and insulin drip. She was then transitioned to subcu insulin with levemir 35 units BID and sliding scale novolog. Her Migraines improved with hydration. CT head was unremarkable. Today she is requesting discharge home. She was discharged home with levemir and novolog pen as well as glucometer and testing strips. She has a follow up Saturday with nail sticker at [facility]. Regarding her vision she is following Dr. Barrera who has set up an MRI of the brain for her tomorrow at [facility]. - Discharge Plan Prescriptions/Med Rec: Insulin Aspart [NovoLOG] 0 unit SUBCUT TIDAC #1 pen Insulin Detemir [Levemir] 35 unit SUBCUT BIDAC #1 pen Home Medications: Home Meds Dasatinib [Sprycel] 100 mg PO DAILY 02/16/16 [History] metFORMIN HCl [Metformin HCl ER] 1,000 mg PO BID 02/16/16 [History] Losartan [Cozaar] 50 mg PO DAILY 02/17/16 [History] Mirtazapine 45 mg PO DAILY 10/17/17 [History] Insulin Aspart [NovoLOG] 0 unit SUBCUT TIDAC #1 pen 10/20/17 [Rx] Insulin Detemir [Levemir] 35 unit SUBCUT BIDAC #1 pen 10/20/17 [Rx] Patient Handouts: Hyperglycemia, [id number] Referrals: [facility] [Outside] - 10/21/17 10:30 am (MRI of the Brain) [facility] [Outside] Gerardo Worthington MD [Physician] - 10/23/17 10:15 am - Patient Data Vitals - Most Recent: Last Vital Signs Temp 35.5 C 10/20/17 11:58 Pulse 92 10/20/17 11:58 Resp 18 10/20/17 11:58 BP 138/93 H 10/20/17 11:58 Pulse Ox 98 10/20/17 11:58 Weight - Most Recent: 95.8 kg I&O - Last 24 hours: Intake & Output 10/19/17 10/20/17 10/20/17 22:59 06:59 14:59 Intake Total 2827 600 Output Total 300 1600 Balance 2527 -1000 Lab Results - Last 24 hrs: Laboratory Results - last 24 hr 10/19/17 10/19/17 10/19/17 Range/Units 14:05 14:59 15:57 WBC (4.0-11.0) K/uL RBC (4.30-5.90) M/uL Hgb (12.0-16.0) g/dL Hct (36.0-46.0) % MCV (80.0-98.0) fL MCH (27.0-32.0) pg MCHC (31.0-37.0) g/dL RDW Std Deviation (28.0-62.0) fl RDW Coeff of Amol (11.0-15.0) % Plt Count (150-400) K/uL MPV (7.40-12.00) fL Nucleated RBC % /100WBC Nucleated RBCs # K/uL Sodium (136-145) mmol/L Potassium (3.5-5.1) mmol/L Chloride (98-107) mmol/L Carbon Dioxide (21.0-32.0) mmol/L BUN (7.0-18.0) mg/dL Creatinine (0.6-1.0) mg/dL Est Cr Clr Drug Dosing mL/min Estimated GFR (MDRD) ml/min Glucose (74-106) mg/dL POC Glucose 319 H 266 H 255 H (60-110) mg/dL Calcium (8.5-10.1) mg/dL 10/19/17 10/19/17 10/19/17 Range/Units 17:00 18:01 18:57 WBC (4.0-11.0) K/uL RBC (4.30-5.90) M/uL Hgb (12.0-16.0) g/dL Hct (36.0-46.0) % MCV (80.0-98.0) fL MCH (27.0-32.0) pg MCHC (31.0-37.0) g/dL RDW Std Deviation (28.0-62.0) fl RDW Coeff of Amol (11.0-15.0) % Plt Count (150-400) K/uL MPV (7.40-12.00) fL Nucleated RBC % /100WBC Nucleated RBCs # K/uL Sodium (136-145) mmol/L Potassium (3.5-5.1) mmol/L Chloride (98-107) mmol/L Carbon Dioxide (21.0-32.0) mmol/L BUN (7.0-18.0) mg/dL Creatinine (0.6-1.0) mg/dL Est Cr Clr Drug Dosing mL/min Estimated GFR (MDRD) ml/min Glucose (74-106) mg/dL POC Glucose 297 H 304 H 287 H (60-110) mg/dL Calcium (8.5-10.1) mg/dL 10/19/17 10/19/17 10/19/17 Range/Units 20:11 21:04 22:13 WBC (4.0-11.0) K/uL RBC (4.30-5.90) M/uL Hgb (12.0-16.0) g/dL Hct (36.0-46.0) % MCV (80.0-98.0) fL MCH (27.0-32.0) pg MCHC (31.0-37.0) g/dL RDW Std Deviation (28.0-62.0) fl RDW Coeff of Amol (11.0-15.0) % Plt Count (150-400) K/uL MPV (7.40-12.00) fL Nucleated RBC % /100WBC Nucleated RBCs # K/uL Sodium (136-145) mmol/L Potassium (3.5-5.1) mmol/L Chloride (98-107) mmol/L Carbon Dioxide (21.0-32.0) mmol/L BUN (7.0-18.0) mg/dL Creatinine (0.6-1.0) mg/dL Est Cr Clr Drug Dosing mL/min Estimated GFR (MDRD) ml/min Glucose (74-106) mg/dL POC Glucose 241 H 231 H 216 H (60-110) mg/dL Calcium (8.5-10.1) mg/dL 10/19/17 10/20/17 10/20/17 Range/Units 23:05 00:03 01:15 WBC (4.0-11.0) K/uL RBC (4.30-5.90) M/uL Hgb (12.0-16.0) g/dL Hct (36.0-46.0) % MCV (80.0-98.0) fL MCH (27.0-32.0) pg MCHC (31.0-37.0) g/dL RDW Std Deviation (28.0-62.0) fl RDW Coeff of Amol (11.0-15.0) % Plt Count (150-400) K/uL MPV (7.40-12.00) fL Nucleated RBC % /100WBC Nucleated RBCs # K/uL Sodium (136-145) mmol/L Potassium (3.5-5.1) mmol/L Chloride (98-107) mmol/L Carbon Dioxide (21.0-32.0) mmol/L BUN (7.0-18.0) mg/dL Creatinine (0.6-1.0) mg/dL Est Cr Clr Drug Dosing mL/min Estimated GFR (MDRD) ml/min Glucose (74-106) mg/dL POC Glucose 203 H 223 H 204 H (60-110) mg/dL Calcium (8.5-10.1) mg/dL 10/20/17 10/20/17 10/20/17 Range/Units 02:16 02:59 04:11 WBC (4.0-11.0) K/uL RBC (4.30-5.90) M/uL Hgb (12.0-16.0) g/dL Hct (36.0-46.0) % MCV (80.0-98.0) fL MCH (27.0-32.0) pg MCHC (31.0-37.0) g/dL RDW Std Deviation (28.0-62.0) fl RDW Coeff of Amol (11.0-15.0) % Plt Count (150-400) K/uL MPV (7.40-12.00) fL Nucleated RBC % /100WBC Nucleated RBCs # K/uL Sodium (136-145) mmol/L Potassium (3.5-5.1) mmol/L Chloride (98-107) mmol/L Carbon Dioxide (21.0-32.0) mmol/L BUN (7.0-18.0) mg/dL Creatinine (0.6-1.0) mg/dL Est Cr Clr Drug Dosing mL/min Estimated GFR (MDRD) ml/min Glucose (74-106) mg/dL POC Glucose 204 H 250 H 291 H (60-110) mg/dL Calcium (8.5-10.1) mg/dL 10/20/17 10/20/17 10/20/17 Range/Units 05:10 05:26 05:26 WBC 7.50 (4.0-11.0) K/uL RBC 4.48 (4.30-5.90) M/uL Hgb 13.0 (12.0-16.0) g/dL Hct 39.1 (36.0-46.0) % MCV 87.3 (80.0-98.0) fL MCH 29.0 (27.0-32.0) pg MCHC 33.2 (31.0-37.0) g/dL RDW Std Deviation 44.1 (28.0-62.0) fl RDW Coeff of Amol 14 (11.0-15.0) % Plt Count 185 (150-400) K/uL MPV 10.50 (7.40-12.00) fL Nucleated RBC % 0.0 /100WBC Nucleated RBCs # 0 K/uL Sodium 138 (136-145) mmol/L Potassium 2.9 L (3.5-5.1) mmol/L Chloride 104 (98-107) mmol/L Carbon Dioxide 27.0 (21.0-32.0) mmol/L BUN 8 (7.0-18.0) mg/dL Creatinine 0.7 (0.6-1.0) mg/dL Est Cr Clr Drug Dosing 102.78 mL/min Estimated GFR (MDRD) > 60.0 ml/min Glucose 270 H (74-106) mg/dL POC Glucose 264 H (60-110) mg/dL Calcium 7.7 L (8.5-10.1) mg/dL 10/20/17 10/20/17 10/20/17 Range/Units 06:04 07:16 10:56 WBC (4.0-11.0) K/uL RBC (4.30-5.90) M/uL Hgb (12.0-16.0) g/dL Hct (36.0-46.0) % MCV (80.0-98.0) fL MCH (27.0-32.0) pg MCHC (31.0-37.0) g/dL RDW Std Deviation (28.0-62.0) fl RDW Coeff of Amol (11.0-15.0) % Plt Count (150-400) K/uL MPV (7.40-12.00) fL Nucleated RBC % /100WBC Nucleated RBCs # K/uL Sodium (136-145) mmol/L Potassium (3.5-5.1) mmol/L Chloride (98-107) mmol/L Carbon Dioxide (21.0-32.0) mmol/L BUN (7.0-18.0) mg/dL Creatinine (0.6-1.0) mg/dL Est Cr Clr Drug Dosing mL/min Estimated GFR (MDRD) ml/min Glucose (74-106) mg/dL POC Glucose 224 H 233 H 297 H (60-110) mg/dL Calcium (8.5-10.1) mg/dL Med Orders - Current: Current Medications Acetaminophen (Tylenol) 650 mg PO Q4H PRN PRN Reason: Pain (Mild 1-3)/fever Last Admin: 10/20/17 01:19 Dose: 650 mg Sodium Chloride (Normal Saline) 1,000 mls @ 125 mls/hr IV ASDIRECTED [facility] Last Admin: 10/20/17 11:44 Dose: 125 mls/hr Insulin Aspart (Novolog) 0 unit SUBCUT TIDAC [facility]; Protocol Last Admin: 10/20/17 11:43 Dose: 9 units Insulin Detemir (Levemir) 35 unit SUBCUT BIDAC [facility] Last Admin: 10/20/17 07:37 Dose: 35 unit Metoclopramide HCl (Reglan) 10 mg IVPUSH Q6H PRN PRN Reason: headache Ondansetron HCl (Zofran) 4 mg IVPUSH Q4H PRN PRN Reason: Nausea Discontinued Medications Sodium Chloride (Normal Saline) 1,000 mls @ 999 mls/hr IV STAT ONE Stop: 10/19/17 12:07 Last Admin: 10/19/17 11:29 Dose: 999 mls/hr Insulin Human Regular 100 unit (/ Sodium Chloride) 100 mls @ 5 mls/hr IV TITRATE [facility]VA; Protocol Last Titration: 10/19/17 14:10 Dose: 3.75 unit/hr, 3.75 mls/hr Insulin Human Regular 100 unit (/ Sodium Chloride) 100 mls @ 5 mls/hr IV TITRATE [facility]VA; Protocol Last Titration: 10/20/17 07:08 Dose: 2.5 unit/hr, 2.5 mls/hr Insulin Detemir (Levemir) 20 unit SUBCUT BIDAC [facility] Insulin Human Regular (Novolin R) 10 unit IVPUSH ONETIME ONE; Protocol Stop: 10/19/17 11:21 Last Admin: 10/19/17 11:32 Dose: 10 unit Insulin Human Regular (Novolin R) 10 unit SUBCUT NOW STA; Protocol Stop: 10/19/17 11:21 Last Admin: 10/19/17 11:33 Dose: 10 unit Insulin Human Regular (Novolin R) 10 unit IVPUSH ONETIME ONE; Protocol Stop: 10/19/17 12:06 Last Admin: 10/19/17 12:20 Dose: 10 unit Insulin Human Regular (Novolin R) 10 unit SUBCUT QIDACANDBED ELVA; Protocol Metoclopramide HCl (Reglan) 10 mg IVPUSH Q4H PRN PRN Reason: headache Morphine Sulfate (Morphine) 2 mg IVPUSH Q2H PRN PRN Reason: Pain (severe 7-10) Stop: 10/20/17 13:10 Ondansetron HCl (Zofran) 8 mg IVPUSH ONETIME ONE Stop: 10/19/17 11:08 Last Admin: 10/19/17 11:30 Dose: 8 mg Ondansetron HCl (Zofran) Confirm Administered Dose 4 mg .ROUTE .STK-MED ONE Stop: 10/19/17 11:22 Last Admin: 10/19/17 11:30 Dose: Not Given
--- NOTE | 2017-10-21 11:12 | CT ---
EXAM DATE: 10/19/17 PATIENT'S AGE: 46 Patient: ABBE GRANT Facility: [place], [place] Site . Site : [id number] Study: CT Head [id number]/[id number] 1:19:53 PM Ordering Physician: Gustavo Kang Final Report: INDICATION: Migraines with loss of consciousness episode. COMPARISON: CT head without intravenous contrast October 17, 2017. TECHNIQUE: CT head without intravenous contrast; coronal and sagittal reformats. FINDINGS: No evidence of intracranial hemorrhage. No mass lesions. No evidence of shift of the midline structures. The calvarium is unremarkable. Fluid level right maxillary antrum; stable in appearance; rule out acute sinusitis. Frontal, ethmoid and sphenoid sinuses are normal bilaterally. The left sphenoid sinus is unremarkable. The ventricular system, the subarachnoid cisterns and the cerebral sulci are unremarkable IMPRESSION: 1. Fluid level right maxillary antrum; rule out acute sinusitis; no interval change when compared to October 17, 2017. 2. No intracranial hemorrhage. 3. No mass lesions or shift of the midline structures. 4. Negative unenhanced head CT otherwise. Please note that all CT scans at this facility use dose modulation, iterative reconstruction, and/or weight-based dosing when appropriate to reduce radiation dose to as low as reasonably achievable. Dictated by Glenn Philippe MD @ Oct 19 2017 1:23PM (Electronic Signature) Report Signed by Proxy. UZIEL
== END 2017-10-20 14:29 | disposition home or self-care (01) | DRG 639 ==
LOC: MW.ED 10:56 → MW.ICU 12:18
PROVIDERS: ADMIT Internal Medicine; ATTEND Internal Medicine
DX: E11.65 Type 2 diabetes mellitus with hyperglycemia (principal); E86.0 Dehydration; G43.909 Migraine, unspecified, not intractable, without status migrainosus; Z88.8 Allergy status to other drugs, medicaments and biological substances; Z79.899 Other long term (current) drug therapy; E78.00 Pure hypercholesterolemia, unspecified; Z87.891 Personal history of nicotine dependence; I10 Essential (primary) hypertension; E11.42 Type 2 diabetes mellitus with diabetic polyneuropathy; F41.8 Other specified anxiety disorders
CPT/HCPCS: 36415; 36600; 80053; 82803; 82962 ×2; 84484; 85025; 96361; 96372; 96375; 96376; 99285; J1815; J2405; J7030; J7040; 70450; 70450-26; 80048; 81001; 85027; 96365; A9270-GY

== ENCOUNTER 2017-11-16 16:36 | Emergency (ER) | payer MEDICARE ==
--- NOTE | 2017-11-16 17:17 | EDM.PDOC ---
ED HPI GENERAL MEDICAL PROBLEM - General Chief Complaint: ENT Problem Stated Complaint: TOOTH PAIN Time Seen by Provider: 11/16/17 17:16 Source of Information: Reports: Patient History Limitations: Reports: No Limitations - History of Present Illness INITIAL COMMENTS - FREE TEXT/NARRATIVE: HISTORY AND PHYSICAL: []46-year-old female presents with dental abscess tooth pain History of Present Illness: []Patient's noticed for the last 2 days that she has had increased pains swelling occurring today She did attempt to contact dentist then noticed open on Saturday Review of Systems: As per history of present illness and below otherwise all systems reviewed and negative. Past medical history: As per history of present illness and as reviewed below otherwise noncontributory. Surgical history: As per history of present illness and as reviewed below otherwise noncontributory. Social history: No reported history of drug or alcohol abuse. Family history: As per history of present illness and as reviewed below otherwise noncontributory. Physical exam: Alert pleasant woman who is answering questions in full sentences she is exquisitely tender across the left upper cheek visualization of the gums erythematous to the left upper jawline HEENT: Atraumatic, normocehpalic, pupils reactive, negative for conjunctival pallor or scleral icterus, mucous membranes moist, throat clear, neck supple, nontender, trachea midline. Lungs: Clear to auscultation, breath sounds equal bilaterally, chest non tender. Heart: S1S2, regular, negative for clicks, rubs, or JVD. Abdomen: Soft, nondistended, nontender. Negative for masses or hepatossplenmegaly. Negative for costovertebral tenderness. Pelvis: Stable nontender. Genitourinary: Deferred. Rectal: Deferred Extremities: Atraumatic, negative for cords or calf pain. Neurovascular unremarkable. Neuro: Awake, alert, oriented. Cranial nerves II through XII unremarkable. Cerebellum unremarkable. Motor and sensory unremarkable throughout. Exam nonfocal. Diagnostics: [] Therapeutics: []Dental balls Impression: []Dental abscess Plan: []Home Amoxicillin Follow up with your dentist Definitive disposition and diagnosis as appropriate pending reevaluation and review of above. Onset: Gradual Duration: Day(s): (2) Location: Reports: Face Quality: Reports: Stabbing Severity: Moderate Improves with: Reports: None Worsens with: Reports: None Associated Symptoms: Reports: No Other Symptoms left upper jaw Pain Score (Numeric/FACES): 8 - Related Data Allergies Allergy/AdvReac Type Severity Reaction Status Date / Time bupropion HCl Allergy Bradycardia Verified 10/19/17 18:54 [From Wellbutrin] erythromycin base Allergy Stomach Verified 10/19/17 18:54 [Erythromycin Base] Ache lisinopril Allergy Tachycardia Verified 10/19/17 18:54 Home Meds: Home Meds Dasatinib [Sprycel] 100 mg PO DAILY 02/16/16 [History] metFORMIN HCl [Metformin HCl ER] 1,000 mg PO BID 02/16/16 [History] Losartan [Cozaar] 50 mg PO DAILY 02/17/16 [History] Mirtazapine 45 mg PO DAILY 10/17/17 [History] Insulin Aspart [NovoLOG] 0 unit SUBCUT TIDAC #1 pen 10/20/17 [Rx] Insulin Detemir [Levemir] 35 unit SUBCUT BIDAC #1 pen 10/20/17 [Rx] Amoxicillin 500 mg PO TID #21 tablet 11/16/17 [Rx] Past Medical History HEENT History: Reports: Impaired Vision Other HEENT History: uses eyeglasses Cardiovascular History: Reports: High Cholesterol, Hypertension Gastrointestinal History: Reports: Cholelithiasis, Gastritis Genitourinary History: Reports: Renal Calculus 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 OB/BYN History: 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 in July 2012 Musculoskeletal History: Reports: Arthritis, Back Pain, Chronic Neurological History: Reports: Neuropathy, Peripheral Other Neuro History: peripheral neuropathy Psychiatric History: Reports: Anxiety, Depression Endocrine/Metabolic History: Reports: Diabetes, Type II Other Endocrine/Metabolic History: pt states it is very uncontrolled Oncologic (Cancer) History: Reports: Leukemia Dermatologic History: 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 (See Below) Other Dermatologic History: santiago - Infectious Disease History Infectious Disease History: Reports: Chicken Pox - Past Surgical History HEENT Surgical History: Reports: Cataract Surgery GI Surgical History: Reports: Cholecystectomy, Hernia, Abdominal Other GI Surgeries/Procedures: hernia surgery x2 Social & Family History - Family History Family Medical History: Noncontributory Neurological: Reports: CVA Endocrine/Metabolic: Reports: Diabetes, type II - Tobacco Use Smoking Status *Q: Former Smoker Years of Tobacco use: 1 Packs/Tins Daily: 0.5 Used Tobacco, but Quit: Yes Month/Year Tobacco Last Used: 10/2015 Second Hand Smoke Exposure: No - Caffeine Use Caffeine Use: Reports: Coffee - Alcohol Use Days Per Week of Alcohol Use: 0 Number of Drinks Per Day: 0 Total Drinks Per Week: 0 - Recreational Drug Use Recreational Drug Use: No Drug Use in Last 12 Months: No ED ROS ENT - Review of Systems Review Of Systems: ROS reveals no pertinent complaints other than HPI. ED EXAM, ENT - Physical Exam Exam: See Below (See dictation) Course - Vital Signs Last Recorded V/S: Last Vital Signs Temp 36.3 C 11/16/17 17:23 Pulse 122 H 11/16/17 17:23 Resp 20 11/16/17 17:23 BP 132/78 11/16/17 17:23 Pulse Ox 100 11/16/17 17:23 Departure - Departure Time of Disposition: 18:02 Disposition: Home, Self-Care 01 Condition: Good Clinical Impression: Dental abscess - Discharge Information Prescriptions: Amoxicillin 500 mg PO TID #21 tablet Referrals: PCP,None [Primary Care Provider] - Forms: ED Department Discharge Additional Instructions: The following information is given to patients seen in the emergency department who are being discharged to home. This information is to outline your options for follow-up care. We provide all patients seen in our emergency department with a follow-up referral. The need for follow-up, as well as the timing and circumstances, are variable depending upon the specifics of your emergency department visit. If you don't have a primary care physician on staff, we will provide you with a referral. We always advise you to contact your personal physician following an emergency department visit to inform them of the circumstance of the visit and for follow-up with them and/or the need for any referrals to a consulting specialist. The emergency department will also refer you to a specialist when appropriate. This referral assures that you have the opportunity for followup care with a specialist. All of these measure are taken in an effort to provide you with optimal care, which includes your followup. Under all circumstances we always encourage you to contact your private physician who remains a resource for coordinating your care. When calling for followup care, please make the office aware that this follow-up is from your recent emergency room visit. If for any reason you are refused follow-up, please contact the [facility] emergency department at and asked to speak to the emergency department charge nurse. You have a dental abscess Amoxicillin has been ordered for you Follow up with your dentist for resolution of this problem Return to emergency room as needed and discussed
[2017-11-16] MEDS ORDERED: Lidocaine 2% Viscous Solution 15 ML Cup PO ONE (18:04)
[2017-11-16] MEDS ORDERED: Benzocaine 20% Topical Spray UD MUCMEM ONE (18:04)
[2017-11-16 18:12] VITALS: BP 139/97
[2017-11-16] MEDS ORDERED: Amoxicillin 500 MG Cap PO ONE (18:12)
== END 2017-11-16 18:20 | disposition home or self-care (01) ==
LOC: MW.ED 16:36
DX: K04.7 Periapical abscess without sinus (principal); E78.00 Pure hypercholesterolemia, unspecified; I10 Essential (primary) hypertension; E11.9 Type 2 diabetes mellitus without complications; F41.9 Anxiety disorder, unspecified; Z87.442 Personal history of urinary calculi; Z88.8 Allergy status to other drugs, medicaments and biological substances; Z88.1 Allergy status to other antibiotic agents; Z79.899 Other long term (current) drug therapy; Z79.4 Long term (current) use of insulin; Z87.891 Personal history of nicotine dependence
CPT/HCPCS: 99283; A9270; 99282

== ENCOUNTER 2018-09-08 14:01 | Emergency (ER) | payer MEDICARE, BC ==
--- NOTE | 2018-09-08 15:00 | EDM.PDOC ---
ED HPI GENERAL MEDICAL PROBLEM - General Chief Complaint: Lower Extremity Injury/Pain Stated Complaint: INJURY TO FOOT Time Seen by Provider: 09/08/18 14:59 Source of Information: Reports: Patient - History of Present Illness INITIAL COMMENTS - FREE TEXT/NARRATIVE: HISTORY AND PHYSICAL: History of present illness: [Patient is here with a diabetic foot ulcer on the distal right fifth metatarsal , it seems that she has dealt with this for some time however does not follow with podiatry cares for it on her own There is a fissure with no exudate for culture at this time as well as what appears to be a grade 2 ulcer no redness warmth or exudative drainage No fever nausea vomiting chills sweats] Review of systems: As per history of present illness and below otherwise all systems reviewed and negative. Past medical history: As per history of present illness and as reviewed below otherwise noncontributory. Surgical history: As per history of present illness and as reviewed below otherwise noncontributory. Social history: No reported history of drug or alcohol abuse. Family history: As per history of present illness and as reviewed below otherwise noncontributory. Physical exam: HEENT: Atraumatic, normocephalic, pupils reactive, negative for conjunctival pallor or scleral icterus, mucous membranes moist, throat clear, neck supple, nontender, trachea midline. Lungs: Clear to auscultation, breath sounds equal bilaterally, chest nontender. Heart: S1S2, regular, negative for clicks, rubs, or JVD. Abdomen: Soft, nondistended, nontender. Negative for masses or hepatosplenomegaly. Negative for costovertebral tenderness. Pelvis: Stable nontender. Genitourinary: Deferred. Rectal: Deferred. Extremities: Atraumatic, negative for cords or calf pain. Neurovascular unremarkable. Neuro: Awake, alert, oriented. Cranial nerves II through XII unremarkable. Cerebellum unremarkable. Motor and sensory unremarkable throughout. Exam nonfocal. Diagnostics: []Left foot 2 views Therapeutics: []Keflex 500 by mouth twice a day #20 no refill Podiatry referral for Saturday Dr. Khalida peters 3 times a day Impression: []DM foot ulcer Definitive disposition and diagnosis as appropriate pending reevaluation and review of above. Right Foot Pain Score (Numeric/FACES): 4 - Related Data Allergies Allergy/AdvReac Type Severity Reaction Status Date / Time bupropion HCl Allergy Bradycardia Verified 09/08/18 14:43 [From Wellbutrin] erythromycin base Allergy Stomach Verified 09/08/18 14:43 [Erythromycin Base] Ache lisinopril Allergy Tachycardia Verified 09/08/18 14:43 Home Meds: Home Meds metFORMIN HCl [Metformin ER Osmotic] 1,000 mg PO BID 02/16/16 [History] Losartan [Cozaar] 50 mg PO DAILY 02/17/16 [History] Mirtazapine 45 mg PO DAILY 10/17/17 [History] Insulin Aspart [NovoLOG] 0 unit SUBCUT TIDAC #1 pen 10/20/17 [Rx] Insulin Detemir [Levemir] 35 unit SUBCUT BIDAC #1 pen 10/20/17 [Rx] Exenatide Microspheres [Bydureon Pen] 2 mg PO DAILY 09/08/18 [History] Insulin Degludec [Tresiba] 100 unit SUBCUT DAILY 09/08/18 [History] Nilotinib HCl [Tasigna] 200 mg PO 09/08/18 [History] Pregabalin [Lyrica] 100 mg PO BID 09/08/18 [History] Prochlorperazine [Compazine] 10 mg PO 09/08/18 [History] SUMAtriptan [Imitrex] 50 mg PO ASDIRECTED 09/08/18 [History] Vortioxetine Hydrobromide [Brintellix] 20 mg PO 09/08/18 [History] Past Medical History HEENT History: Reports: Impaired Vision Other HEENT History: uses eyeglasses Cardiovascular History: Reports: High Cholesterol, Hypertension Gastrointestinal History: Reports: Cholelithiasis, Gastritis Genitourinary History: Reports: Renal Calculus 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 History: 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 in July 2012 Musculoskeletal History: Reports: Arthritis, Back Pain, Chronic Neurological History: Reports: Neuropathy, Peripheral Other Neuro History: peripheral neuropathy Psychiatric History: Reports: Anxiety, Depression Endocrine/Metabolic History: Reports: Diabetes, Type II Other Endocrine/Metabolic History: pt states it is very uncontrolled Immunologic History: Reports: None Oncologic (Cancer) History: Reports: Leukemia Dermatologic History: 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 (See Below) Other Dermatologic History: santiago - Infectious Disease History Infectious Disease History: Reports: None - Past Surgical History Head Surgeries/Procedures: Reports: None HEENT Surgical History: Reports: Cataract Surgery GI Surgical History: Reports: Cholecystectomy, Hernia, Abdominal Other GI Surgeries/Procedures: hernia surgery x2 Social & Family History - Family History Family Medical History: Noncontributory Neurological: Reports: CVA Endocrine/Metabolic: Reports: Diabetes, type II - Tobacco Use Smoking Status *Q: Never Smoker - Caffeine Use Caffeine Use: Reports: None - Recreational Drug Use Recreational Drug Use: No Review of Systems - Review of Systems Review Of Systems: See Below ED EXAM, GENERAL - Physical Exam Exam: See Below Course - Vital Signs Last Recorded V/S: Last Vital Signs Temp 98.7 F 09/08/18 14:48 Pulse 100 09/08/18 14:48 Resp 16 09/08/18 14:48 BP 159/87 H 09/08/18 14:48 Pulse Ox 98 09/08/18 14:48 Departure - Departure Time of Disposition: 15:39 Disposition: Home, Self-Care 01 Condition: Good Clinical Impression: Diabetic foot ulcer - Discharge Information Referrals: PCP,Unknown [Primary Care Provider] - Forms: ED Department Discharge Additional Instructions: YOU HAVE AN APPOINTMENT WITH DR YEPEZ (PODIATRY) ON MONDAY SEPTEMBER 10, 2018 AT 1PM. PLEASE ARRIVE BEFORE 12:45PM FOR YOUR APPOINTMENT SO THE APPROPRIATE PAPERWORK CAN BE DONE AHEAD OF THE APPOINTMENT. PLEASE BRING ID AND INSURANCE CARD TO THE APPOINTMENT. DR YEPEZ [address] [place] [address] - [facility] FLOOR [phone] [address] salts [address] [place] as above Medication as prescribed The following information is given to patients seen in the emergency department who are being discharged to home. This information is to outline your options for follow-up care. We provide all patients seen in our emergency department with a follow-up referral. The need for follow-up, as well as the timing and circumstances, are variable depending upon the specifics of your emergency department visit. If you don't have a primary care physician on staff, we will provide you with a referral. We always advise you to contact your personal physician following an emergency department visit to inform them of the circumstance of the visit and for follow-up with them and/or the need for any referrals to a consulting specialist. The emergency department will also refer you to a specialist when appropriate. This referral assures that you have the opportunity for follow-up care with a specialist. All of these measure are taken in an effort to provide you with optimal care, which includes your follow-up. Under all circumstances we always encourage you to contact your private physician who remains a resource for coordinating your care. When calling for follow-up care, please make the office aware that this follow-up is from your recent emergency room visit. If for any reason you are refused follow-up, please contact the [facility] emergency department at and asked to speak to the emergency department charge nurse.
--- NOTE | 2018-09-08 15:36 | CR ---
EXAMINATION: Right foot HISTORY: Pain COMPARISON: 10/30/2014 TECHNIQUE: 2 views FINDINGS/IMPRESSION: There is moderate soft tissue swelling noted overlying the fifth MCP joint. There is no definite underlying fracture or acute osseous abnormality. Bone mineralization is otherwise normal.
[2018-09-08] MEDS ORDERED: Bacitracin Oint 1 GM U/D Packet TOP ONE (15:44)
[2018-09-08 15:53] VITALS: BP 138/78
== END 2018-09-08 15:54 | disposition home or self-care (01) ==
LOC: MW.ED 14:01
DX: E11.621 Type 2 diabetes mellitus with foot ulcer (principal); L97.519 Non-pressure chronic ulcer of other part of right foot with unspecified severity; I10 Essential (primary) hypertension; Z98.49 Cataract extraction status, unspecified eye; Z90.49 Acquired absence of other specified parts of digestive tract; Z88.1 Allergy status to other antibiotic agents; Z88.8 Allergy status to other drugs, medicaments and biological substances; Z79.4 Long term (current) use of insulin; Z79.899 Other long term (current) drug therapy; Z90.710 Acquired absence of both cervix and uterus
CPT/HCPCS: 73620-26-RT; 73620-RT; 99282; 99283

== ENCOUNTER 2019-07-31 06:32 | Day surgery (SDC) | payer BC, MEDICARE ==
[~2019-07-31 06:32] MED LIST: Lactated Ringers 1,000 ML IV SCH
[2019-07-31] MEDS ORDERED: Lidocaine 1% 20 ML MDV ONE (07:24)
[2019-07-31] MEDS ORDERED: Bupivacaine 0.5% 30 ML SDV ONE (07:24)
[2019-07-31] MEDS ORDERED: Dextrose 5% in Water 1,000 ML IV SCH (07:30)
--- NOTE | 2019-07-31 07:32 | PCM.PREANE ---
Preanesthetic Assessment - Anesthesia/Transfusion/Family Hx Anesthesia History: Prior Anesthesia Without Reaction Other Type of Anesthesia Reaction Comment: Emesis Family History of Anesthesia Reaction: No Transfusion History: No Prior Transfusion(s) - Review of Systems General: No Symptoms Pulmonary: No Symptoms Cardiovascular: No Symptoms Neurological: No Symptoms Other: Reports: None - Physical Assessment NPO Status Date: 07/30/19 Height: 5 ft 8.5 in Weight: 90.265 kg ASA Class: 3 Mental Status: Alert & Oriented x3 Airway Class: Mallampati = 2 Dentition: Reports: Broken Tooth/Teeth, Missing Tooth/Teeth ROM/Head Extension: Full Lungs: Clear to Auscultation, Normal Respiratory Effort Cardiovascular: Regular Rate, Regular Rhythm - Lab Values: Laboratory Last Values POC Glucose 82 mg/dL (60-110) 07/31/19 07:06 - Allergies Allergies/Adverse Reactions: Allergies Allergy/AdvReac Type Severity Reaction Status Date / Time bupropion HCl Allergy Tachycardia Verified 07/27/19 12:10 [From Wellbutrin] erythromycin base Allergy Stomach Verified 07/27/19 12:01 [Erythromycin Base] Ache lisinopril Allergy Bradycardia Verified 07/27/19 12:10 - Blood Blood Available: No - Acknowledgements Anesthesia Type Planned: General Anesthesia Pt an Appropriate Candidate for the Planned Anesthesia: Yes Alternatives and Risks of Anesthesia Discussed w Pt/Guardian: Yes Pt/Guardian Understands and Agrees with Anesthesia Plan: Yes Additional Comments: PMH: chr pain, anx/dep, DM2 on insulin- am glucose was 60- arrival glucose was 80- have started piggyback D5, htn, lyrica for periph neuropathy PLAN: ga/lma, in lateral position. 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 OB/BYN History: 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 in July 2012 Musculoskeletal History: Reports: Arthritis, Fibromyalgia Other Musculoskeletal History: bone pain from leukemia Neurological History: Reports: Neuropathy, Peripheral Other Neuro History: peripheral neuropathy, occular Psychiatric History: Reports: Anxiety, Depression Endocrine/Metabolic History: Reports: Diabetes, Type II Hematologic History: Reports: None Immunologic History: Reports: None Oncologic (Cancer) History: Reports: Leukemia Other Oncologic History: chronic myelogenous leukemia Dermatologic History: Reports: None - Infectious Disease History Infectious Disease History: Reports: None - Past Surgical History Head Surgeries/Procedures: Reports: None HEENT Surgical History: Reports: Cataract Surgery Cardiovascular Surgical History: Reports: None Respiratory Surgical History: Reports: None GI Surgical History: Reports: Cholecystectomy, Hernia, Abdominal Other GI Surgeries/Procedures: umbilical hernia surgery x2 Female Surgical History: Reports: Section, D&C, 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, Lithotripsy/ESWL Other Female Surgeries/Procedures: kidney stones x7, hx ESWL with stent placement Endocrine Surgical History: Reports: None Neurological Surgical History: Reports: None Musculoskeletal Surgical History: Reports: Shoulder Surgery Other Musculoskeletal Surgeries/Procedures:: rt shoulder arthroscopy Oncologic Surgical History: Reports: None Dermatological Surgical History: Reports: None - SUBSTANCE USE Smoking Status *Q: Former Smoker Tobacco Use Within Last Twelve Months: No Recreational Drug Use History: No - HOME MEDS Home Medications: Home Meds metFORMIN HCl [Metformin ER Osmotic] 1,000 mg PO BID 02/16/16 [History] Losartan [Cozaar] 100 mg PO DAILY 02/17/16 [History] Exenatide Microspheres [Bydureon Pen] 2 mg PO WEEKLY 09/08/18 [History] Nilotinib HCl [Tasigna] 200 mg PO DAILY 09/08/18 [History] Pregabalin [Lyrica] 100 mg PO TID 09/08/18 [History] SUMAtriptan [Imitrex] 50 mg PO ASDIRECTED PRN 09/08/18 [History] Insulin Aspart [NovoLOG] 1 injection SUBCUT TIDAC 07/27/19 [History] Insulin Regular, Human [Humulin R U-500 Kwikpen] 1 injection SUBCUT TID [History] Prochlorperazine Maleate 10 mg PO ASDIRECTED PRN 07/27/19 [History] Topiramate 2 tab PO DAILY PRN 07/27/19 [History] - CURRENT (IN HOUSE) MEDS Current Meds: Current Medications Lactated Ringer's (Ringers, Lactated) 1,000 mls @ 125 mls/hr IV ASDIRECTED ELVA Dextrose/Water (Dextrose 5% In Water) 1,000 mls @ 100 mls/hr IV ASDIRECTED ELVA Discontinued Medications Bupivacaine HCl (Marcaine 0.5%) Confirm Administered Dose 30 ml .ROUTE .STK-MED ONE Stop: 07/31/19 07:25 Lidocaine HCl (Xylocaine 1%) Confirm Administered Dose 20 ml .ROUTE .STK-MED ONE Stop: 07/31/19 07:25
[2019-07-31] MEDS ORDERED: Lidocaine 2% 5 ML SDV ONE (07:38)
[2019-07-31] MEDS ORDERED: Dextrose 5% in Water 500 ML IV SCH (07:38)
[2019-07-31] MEDS ORDERED: Midazolam 1 MG/ML 2 ML SDV ONE (07:40)
[2019-07-31] MEDS ORDERED: fentaNYL 100 MCG/2 ML SDV ONE (07:40)
[2019-07-31] MEDS ORDERED: Propofol 200 MG/20 ML SDV ONE (07:40)
--- NOTE | 2019-07-31 08:49 | PCM.OPNOTE ---
- General Post-Op/Procedure Note Date of Surgery/Procedure: 07/31/19 Operative Procedure(s): Excision, right upper back mass Pre Op Diagnosis: Symptomatic right upper back mass Post-Op Diagnosis: Same Anesthesia Technique: Local, MAC (ASA III) Primary Surgeon: Prudencio Chowdhury Fluid Replacement, Intraop: 700 EBL in mLs: 5 Condition: Good Free Text/Narrative:: DICTATION [id number] CPT CODE 43350
--- NOTE | 2019-07-31 08:56 | PCM.POSTAN ---
POST ANESTHESIA ASSESSMENT - MENTAL STATUS Mental Status: Alert - VITAL SIGNS Vital Signs: Last Vital Signs Temp 35.6 C 07/31/19 08:33 Pulse 86 07/31/19 08:53 Resp 16 07/31/19 08:53 BP 113/70 07/31/19 08:53 Pulse Ox 92 L 07/31/19 08:53 - RESPIRATORY Respiratory Status: Respiratory Rate WNL - CARDIOVASCULAR CV Status: Pulse Rate WNL - GASTROINTESTINAL GI Status: No Symptoms - PAIN Pain Score: 0 - POST OP HYDRATION Hydration Status: Adequate & Stable - OBSERVATIONS Free Text/Narrative:: Doing well. Will transfer to .
[2019-07-31] MEDS ORDERED: Lactated Ringers 1,000 ML IV SCH (09:00)
--- NOTE | 2019-07-31 11:08 | OR ---
SURGEON: Prudencio Chowdhury M.D. DATE OF PROCEDURE: 07/31/2019 OPERATION PERFORMED: Excision, right upper back mass. PRIMARY SURGEON: Prudencio Chowdhury MD. ANESTHESIA: Local MAC. ASA CLASSIFICATION: III. PREOPERATIVE DIAGNOSIS: Enlarging symptomatic right back mass. POSTOPERATIVE DIAGNOSIS: Enlarging symptomatic right back mass. ESTIMATED BLOOD LOSS: 5 mL. INTRAOPERATIVE FLUID REPLACEMENT: 700 mL of crystalloid. DESCRIPTION OF PROCEDURE: The patient was taken to the operating room and placed on the transfer cart in the left lateral decubitus position. With the patient's assistance, the surgical site had been marked prior to the patient entering the operating room. Time-out was called for appropriate identification of the patient and procedure. With local anesthesia and monitored anesthesia care, the surgical site was infiltrated with 10 mL of 1% Xylocaine and 10 mL of 0.5% Marcaine solution. A skin incision was made and deepened through the subcutaneous tissue down to what was the identified mass. This was circumferentially dissected using electrocautery. This was not well circumscribed. This area was then removed. Digital exploration did not reveal any other masses. The wound was inspected for hemostasis and bleeding sites were electrocoagulated. With that accomplished, the wound was closed in 2 layers, approximating the subcutaneous tissue with 3-0 Vicryl and the skin with subcuticular 4-0 Monocryl. Steri- Strips were placed on the skin, which was dressed with a sterile Tegaderm pad. Sponge, needle, and instrument counts were all correct. The patient was then taken to recovery room in stable condition. BARBARA / MOI /[id number]
--- NOTE | 2019-07-31 12:28 | PCM48HPAN ---
Post Anesthesia Note - EVALUATION WITHIN 48HRS OF ANESTHETIC Vital Signs in Normal Range: Yes Patient Participated in Evaluation: Yes Respiratory Function Stable: Yes Airway Patent: Yes Cardiovascular Function Stable: Yes Hydration Status Stable: Yes Pain Control Satisfactory: Yes Nausea and Vomiting Control Satisfactory: Yes Mental Status Recovered: Yes Vital Signs: Last Vital Signs Temp 96.1 F 07/31/19 08:33 Pulse 86 07/31/19 08:53 Resp 16 07/31/19 08:53 BP 113/70 07/31/19 08:53 Pulse Ox 92 L 07/31/19 08:53
[2019-07-31 13:36] VITALS: BP 120/76; PULSE 84
== END 2019-07-31 10:05 | disposition home or self-care (01) ==
LOC: MW.SDS 06:32
PROVIDERS: ATTEND Surgery
DX: R22.2 Localized swelling, mass and lump, trunk (principal); F41.8 Other specified anxiety disorders; E11.69 Type 2 diabetes mellitus with other specified complication; E78.5 Hyperlipidemia, unspecified; I10 Essential (primary) hypertension; E78.00 Pure hypercholesterolemia, unspecified; M19.90 Unspecified osteoarthritis, unspecified site; Z88.8 Allergy status to other drugs, medicaments and biological substances; Z88.1 Allergy status to other antibiotic agents; Z79.4 Long term (current) use of insulin; Z79.899 Other long term (current) drug therapy; Z90.49 Acquired absence of other specified parts of digestive tract; Z87.891 Personal history of nicotine dependence
CPT/HCPCS: 11403; 12032; 82962; 88304; J2001; J2250; J2704; J3010; J3490; J7060; J7120; 00300

== ENCOUNTER 2019-08-28 06:31 | Day surgery (SDC) | payer BC, MEDICARE ==
--- NOTE | 2019-08-28 07:17 | PCM.PREANE ---
Preanesthetic Assessment - Anesthesia/Transfusion/Family Hx Anesthesia History: Prior Anesthesia Without Reaction Other Type of Anesthesia Reaction Comment: Emesis Transfusion History: No Prior Transfusion(s) - Review of Systems General: No Symptoms Pulmonary: No Symptoms Cardiovascular: No Symptoms Gastrointestinal: No Symptoms Neurological: Paresthesia Other: Reports: None - Physical Assessment NPO Status Date: 08/27/19 Height: 5 ft 8 in Weight: 90.265 kg ASA Class: 3 Mental Status: Alert & Oriented x3 Airway Class: Mallampati = 2 Dentition: Reports: Broken Tooth/Teeth, Missing Tooth/Teeth, Caries ROM/Head Extension: Full Lungs: Clear to Auscultation, Normal Respiratory Effort Cardiovascular: Regular Rate, Regular Rhythm - Lab Values: Laboratory Last Values POC Glucose 167 mg/dL (60-110) H 08/28/19 06:53 - Allergies Allergies/Adverse Reactions: Allergies Allergy/AdvReac Type Severity Reaction Status Date / Time bupropion HCl Allergy Tachycardia Verified 08/21/19 07:20 [From Wellbutrin] erythromycin base Allergy Stomach Verified 08/21/19 07:20 [Erythromycin Base] Ache lisinopril Allergy Bradycardia Verified 08/21/19 07:20 - Anesthesia Plan Pre-Op Medication Ordered: None - Acknowledgements Anesthesia Type Planned: General Anesthesia Pt an Appropriate Candidate for the Planned Anesthesia: Yes Alternatives and Risks of Anesthesia Discussed w Pt/Guardian: Yes Pt/Guardian Understands and Agrees with Anesthesia Plan: Yes Additional Comments: PMH: htn? 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: 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 OB/BYN History: 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 in July 2012 Musculoskeletal History: Reports: Arthritis, Fibromyalgia Other Musculoskeletal History: bone pain from leukemia Neurological History: Reports: Migraines, Neuropathy, Peripheral Other Neuro History: peripheral neuropathy, occular migraines Psychiatric History: Reports: Anxiety, Depression Endocrine/Metabolic History: Reports: Diabetes, Type II Hematologic History: Reports: None Immunologic History: Reports: None Oncologic (Cancer) History: Reports: Leukemia Other Oncologic History: chronic myelogenous leukemia Dermatologic History: Reports: None - Infectious Disease History Infectious Disease History: Reports: None - Past Surgical History Head Surgeries/Procedures: Reports: None HEENT Surgical History: Reports: Cataract Surgery Cardiovascular Surgical History: Reports: None Respiratory Surgical History: Reports: None GI Surgical History: Reports: Cholecystectomy, Hernia, Abdominal Other GI Surgeries/Procedures: umbilical hernia surgery x2 Female Surgical History: Reports: Section, D&C, 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, Lithotripsy/ESWL Other Female Surgeries/Procedures: kidney stones x7, hx ESWL with stent placement Endocrine Surgical History: Reports: None Neurological Surgical History: Reports: None Musculoskeletal Surgical History: Reports: Shoulder Surgery Other Musculoskeletal Surgeries/Procedures:: rt shoulder arthroscopy Oncologic Surgical History: Reports: None Dermatological Surgical History: 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 (See Below) - SUBSTANCE USE Smoking Status *Q: Former Smoker Tobacco Use Within Last Twelve Months: No - HOME MEDS Home Medications: Home Meds metFORMIN HCl [Metformin ER Osmotic] 1,000 mg PO BID 02/16/16 [History] Losartan [Cozaar] 100 mg PO DAILY 02/17/16 [History] Exenatide Microspheres [Bydureon Pen] 2 mg PO WEEKLY 09/08/18 [History] Nilotinib HCl [Tasigna] 200 mg PO DAILY 09/08/18 [History] Pregabalin [Lyrica] 100 mg PO TID 09/08/18 [History] SUMAtriptan [Imitrex] 50 mg PO ASDIRECTED PRN 09/08/18 [History] Insulin Aspart [NovoLOG] 1 injection SUBCUT TIDAC 07/27/19 [History] Insulin Regular, Human [Humulin R U-500 Kwikpen] 1 injection SUBCUT TID [History] Prochlorperazine Maleate 10 mg PO ASDIRECTED PRN 07/27/19 [History] Topiramate 2 tab PO DAILY PRN 07/27/19 [History] - CURRENT (IN HOUSE) MEDS Current Meds: Current Medications Lactated Ringer's (Ringers, Lactated) 1,000 mls @ 125 mls/hr IV ASDIRECTED ELVA
[2019-08-28] MEDS ORDERED: Bacitracin Oint 28.35 GM Tube ONE (07:24)
[2019-08-28] MEDS ORDERED: Lidocaine 1% 20 ML MDV ONE (07:24)
[2019-08-28] MEDS ORDERED: Bupivacaine 0.5% 30 ML SDV ONE (07:24)
[2019-08-28] MEDS ORDERED: Propofol 200 MG/20 ML SDV ONE (07:29)
[2019-08-28] MEDS ORDERED: fentaNYL 250 MCG/5 ML SDV ONE (07:29)
[2019-08-28] MEDS ORDERED: Midazolam 1 MG/ML 2 ML SDV ONE (07:29)
[2019-08-28] MEDS ORDERED: Ondansetron 4 MG/2 ML SDV ONE (07:31)
[2019-08-28] MEDS ORDERED: Lidocaine 2% 5 ML SDV ONE (07:31)
[2019-08-28] MEDS ORDERED: Dexamethasone 4 MG/ML 5 ML MDV ONE (08:25)
[2019-08-28] MEDS ORDERED: Acetaminophen/HYDROcodone 325-5 MG Tab PO PRN (08:56)
[2019-08-28] MEDS ORDERED: Ketorolac 30 MG/ML SDV IVPUSH ONE (08:56)
--- NOTE | 2019-08-28 08:58 | PCM.OPNOTE ---
- General Post-Op/Procedure Note Date of Surgery/Procedure: 08/28/19 Operative Procedure(s): Excision 3.5 x 5 cm right upper back mass Pre Op Diagnosis: Symptomatic right upper back mass Post-Op Diagnosis: Same Anesthesia Technique: General LMA (ASA III) Primary Surgeon: Prudencio Chowdhury Fluid Replacement, Intraop: 600 EBL in mLs: 5 Condition: Good Free Text/Narrative:: DICTATION [id number] CPT CODE 13045
[2019-08-28] MEDS ORDERED: Lactated Ringers 1,000 ML IV SCH (09:00)
--- NOTE | 2019-08-28 11:23 | PCM.POSTAN ---
POST ANESTHESIA ASSESSMENT - MENTAL STATUS Mental Status: Alert, Oriented - VITAL SIGNS Vital Signs: Last Vital Signs Temp 97.3 F 08/28/19 08:50 Pulse 105 H 08/28/19 09:10 Resp 14 08/28/19 09:10 BP 118/70 08/28/19 09:10 Pulse Ox 93 L 08/28/19 09:10 - RESPIRATORY Respiratory Status: Respiratory Rate WNL, Airway Patent, O2 Saturation Stable - CARDIOVASCULAR CV Status: Pulse Rate WNL, Blood Pressure Stable - GASTROINTESTINAL GI Status: No Symptoms - POST OP HYDRATION Hydration Status: Adequate & Stable
--- NOTE | 2019-08-28 11:23 | PCM48HPAN ---
Post Anesthesia Note - EVALUATION WITHIN 48HRS OF ANESTHETIC Vital Signs in Normal Range: Yes Patient Participated in Evaluation: Yes Respiratory Function Stable: Yes Airway Patent: Yes Cardiovascular Function Stable: Yes Hydration Status Stable: Yes Pain Control Satisfactory: Yes Nausea and Vomiting Control Satisfactory: Yes Mental Status Recovered: Yes Vital Signs: Last Vital Signs Temp 97.3 F 08/28/19 08:50 Pulse 105 H 08/28/19 09:10 Resp 14 08/28/19 09:10 BP 118/70 08/28/19 09:10 Pulse Ox 93 L 08/28/19 09:10
--- NOTE | 2019-08-28 11:27 | OR ---
SURGEON: Prudencio Chowdhury M.D. DATE OF PROCEDURE: 08/28/2019 OPERATION PERFORMED: Excision of 5 cm right upper back mass. PRIMARY SURGEON: Prudencio Chowdhury MD. ANESTHESIA: General LMA. ASA CLASSIFICATION: III. PREOPERATIVE DIAGNOSIS: Symptomatic right back mass. POSTOPERATIVE DIAGNOSIS: Symptomatic right back mass. ESTIMATED BLOOD LOSS: 5 mL. INTRAOPERATIVE FLUID REPLACEMENT: 600 mL of crystalloid. DESCRIPTION OF PROCEDURE: The patient was taken to the operating room and placed on the operating table on the beanbag in the supine position. Following satisfactory attainment of general anesthesia with placement of an LMA, the patient was positioned in the left lateral decubitus position. A left axillary roll was placed. Care was taken to pad all bony prominences and support the right arm on a pillow and a pillow between the legs. With her appropriately positioned, the beanbag was deflated. The surgical site had been marked prior to the patient entering the operating room. This was now prepped with Betadine solution and sterile drapes were applied. The skin incision had been marked out. This was now infiltrated with 10 mL of 0.5% Marcaine solution. A skin incision was made and deepened through the subcutaneous tissue obtaining hemostasis with the use of electrocautery. Dissection was carried down to the mass, which was circumferentially excised using electrocautery. Bleeding sites were electrocoagulated. The incision was then closed in 2 layers approximating the subcutaneous tissue with 3-0 Vicryl and the skin with subcuticular 4-0 Monocryl. The incision was further dressed with half-inch plain Steri-Strips and a sterile Tegaderm pad. Sponge, needle, and instrument counts were all correct. The patient was now positioned on the cart in the supine position. Following emergence from anesthesia and extubation, she was taken to recovery room in stable condition. BARBARA / MOI /[id number]
[2019-08-28 12:59] VITALS: BP 132/78; PULSE 88
== END 2019-08-28 10:45 | disposition home or self-care (01) ==
LOC: MW.SDS 06:31
PROVIDERS: ATTEND Surgery
DX: D17.1 Benign lipomatous neoplasm of skin and subcutaneous tissue of trunk (principal); E11.40 Type 2 diabetes mellitus with diabetic neuropathy, unspecified; E78.00 Pure hypercholesterolemia, unspecified; I10 Essential (primary) hypertension; G43.909 Migraine, unspecified, not intractable, without status migrainosus; M19.90 Unspecified osteoarthritis, unspecified site; Z87.891 Personal history of nicotine dependence; Z88.8 Allergy status to other drugs, medicaments and biological substances; Z88.1 Allergy status to other antibiotic agents; Z79.4 Long term (current) use of insulin; Z79.899 Other long term (current) drug therapy
CPT/HCPCS: 21931; 82962; J1100; J1885; J2001; J2250; J2405; J2704; J3010; J3490; J7120; 88304; A9270-GY

== ENCOUNTER 2019-11-18 16:04 | Emergency (ER) | payer BC, MEDICARE ==
--- NOTE | 2019-11-18 16:40 | EDM.PDOC ---
ED HPI GENERAL MEDICAL PROBLEM - General Chief Complaint: Burn Stated Complaint: right hand finger bone infection Time Seen by Provider: 11/18/19 16:35 Source of Information: Reports: Patient History Limitations: Reports: No Limitations - History of Present Illness INITIAL COMMENTS - FREE TEXT/NARRATIVE: This is a 48-year-old female who presents to the emergency room with a chief complaint of a burn on her right thumb. Patient has a history of diabetes, and she is on chemotherapy for cancer. Patient has been on antibiotics for 2 days without improvement. Patient's x-ray of the thumb shows osteomyelitis. Patient was told to come to the hospital for possible debridement and IV antibiotics Duration: Day(s): (5), Getting Worse Location: Reports: Upper Extremity, Right Quality: 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 (Numbness of the fingers) Severity: Moderate Context: Reports: Trauma (Burn 5 days ago) Associated Symptoms: Reports: No Other Symptoms Treatments LIVESTOCK COUNTER: 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 Medication(s) (On Bactrim for 2 days) - Related Data Allergies Allergy/AdvReac Type Severity Reaction Status Date / Time bupropion HCl Allergy Tachycardia Verified 11/18/19 16:30 [From Wellbutrin] erythromycin base Allergy Stomach Verified 11/18/19 16:30 [Erythromycin Base] Ache lisinopril Allergy Bradycardia Verified 11/18/19 16:30 Home Meds: Home Meds metFORMIN HCl [Metformin ER Osmotic] 1,000 mg PO BID 02/16/16 [History] Losartan [Cozaar] 100 mg PO DAILY 02/17/16 [History] Exenatide Microspheres [Bydureon Pen] 2 mg PO WEEKLY 09/08/18 [History] Nilotinib HCl [Tasigna] 200 mg PO DAILY 09/08/18 [History] Pregabalin [Lyrica] 100 mg PO TID 09/08/18 [History] SUMAtriptan [Imitrex] 50 mg PO ASDIRECTED PRN 09/08/18 [History] Insulin Aspart [NovoLOG] 1 injection SUBCUT TIDAC 07/27/19 [History] Insulin Regular, Human [Humulin R U-500 Kwikpen] 1 injection SUBCUT TID [History] Prochlorperazine Maleate 10 mg PO ASDIRECTED PRN 07/27/19 [History] Topiramate 2 tab PO DAILY PRN 07/27/19 [History] Past Medical History HEENT History: Reports: Impaired Vision Other HEENT History: glasses for driving Cardiovascular History: Reports: High Cholesterol, Hypertension Other Cardiovascular History: takes losartan to protect kidneys Respiratory History: Reports: None Gastrointestinal History: Reports: Cholelithiasis Genitourinary History: Reports: Renal Calculus INTERNATIONAL SPECIALIST History: 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 INTERNATIONAL SPECIALIST History: 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 in July 2012 Musculoskeletal History: Reports: Arthritis, Fibromyalgia Other Musculoskeletal History: bone pain from leukemia Neurological History: Reports: Migraines, Neuropathy, Peripheral Other Neuro History: peripheral neuropathy, occular migraines Psychiatric History: Reports: Anxiety, Depression Endocrine/Metabolic History: Reports: Diabetes, Type II Hematologic History: Reports: None Immunologic History: Reports: None Oncologic (Cancer) History: Reports: Leukemia Other Oncologic History: chronic myelogenous leukemia Dermatologic History: Reports: None - Infectious Disease History Infectious Disease History: Reports: None - Past Surgical History Head Surgeries/Procedures: Reports: None HEENT Surgical History: Reports: Cataract Surgery Cardiovascular Surgical History: Reports: None Respiratory Surgical History: Reports: None GI Surgical History: Reports: Cholecystectomy, Hernia, Abdominal Other GI Surgeries/Procedures: umbilical hernia surgery x2 Female Surgical History: Reports: Section, D&C, 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, Lithotripsy/ESWL Other Female Surgeries/Procedures: kidney stones x7, hx ESWL with stent placement Endocrine Surgical History: Reports: None Neurological Surgical History: Reports: None Musculoskeletal Surgical History: Reports: Shoulder Surgery Other Musculoskeletal Surgeries/Procedures:: rt shoulder arthroscopy Oncologic Surgical History: Reports: None Dermatological Surgical History: 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 (See Below) Social & Family History - Family History Family Medical History: Noncontributory Neurological: Reports: CVA Endocrine/Metabolic: Reports: Diabetes, type II - Caffeine Use Caffeine Use: Reports: None ED ROS GENERAL - Review of Systems Review Of Systems: See Below Constitutional: Reports: No Symptoms HEENT: Reports: No Symptoms Respiratory: Reports: No Symptoms Cardiovascular: Reports: No Symptoms Endocrine: Reports: No Symptoms, Fatigue, High Glucose GI/Abdominal: Reports: No Symptoms : Reports: No Symptoms Musculoskeletal: Reports: No Symptoms, Hand Pain Skin: Reports: Wound, Burn(s) (2 x 2 centimeter burn on the thumb) Neurological: Reports: No Symptoms Psychiatric: Reports: No Symptoms Hematologic/Lymphatic: Reports: No Symptoms Immunologic: 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 (Chemotherapy) ED EXAM, BURN/SMOKE INHALATION - Physical Exam Exam: See Below Exam Limited By: No Limitations General Appearance: Alert, WD/WN, No Apparent Distress Eye Exam: Bilateral Eye: Normal Fundi, Normal Inspection, PERRL Ears (Abbreviated): Normal External Exam, Normal Canal, Hearing Grossly Normal Mouth/Throat: No Symptoms Reported Head: No Symptoms Neck: No Symptoms Respiratory: No Respiratory Distress, Lungs Clear, Normal Breath Sounds, No Accessory Muscle Use, Chest Non-Tender Cardiovascular: Normal Peripheral Pulses, Regular Rate, Rhythm, No Edema, No JVD , No Murmur GI/Abdominal: Normal Bowel Sounds, Soft, Non-Tender, No Organomegaly, No Distention (Female) Exam: Deferred Rectal Exam: Deferred Back Exam: Normal Inspection, Full Range of Motion Extremities: Limited Range of Motion, Increased Warmth Neurological: Alert, Oriented, CN II-XII Intact, Normal Cognition, Normal Reflexes, No Motor/Sensory Deficits Psychiatric: Normal Affect, Normal Mood Skin Exam: Warm, Dry, Increased Warmth, Wound/Incision (Range of motion on the thumb skin appears to be infected with decreased range of motion at the joint) Lymphatic: No Adenopathy Course - Vital Signs Text/Narrative:: The patient had a reading from radiology which shows possible cystic lesion needs an MRI to decide if it is osteomyelitis. Patient has a white count of 12.9. And blood glucoses 200. Patient has been given IV antibiotics. I have discussed the case with the hospitalist on-call and the surgeon operations research analyst. The surgeon will evaluate the hand to decide the outcome of which service the patient belongs to. Has been evaluated by Dr. Chowdhury and felt that the patient needs to be sent to a facility that has a hand surgeon. Patient discussed with Dr. Villatoro at [facility] and patient will be sent to the ER for evaluation. Patient is okay to go by POV at this time patient has received antibiotics and has not received any mind altering medications. Last Recorded V/S: Last Vital Signs Temp 97.6 F 11/18/19 16:26 Pulse 96 11/18/19 18:00 Resp 17 11/18/19 18:00 BP 115/88 11/18/19 18:00 Pulse Ox 99 11/18/19 18:00 - Orders/Labs/Meds Labs: Laboratory Tests 11/18/19 11/18/19 Range/Units 17:13 17:13 WBC 12.93 H (4.0-11.0) K/uL RBC 5.25 (4.30-5.90) M/uL Hgb 14.7 (12.0-16.0) g/dL Hct 43.9 (36.0-46.0) % MCV 83.6 (80.0-98.0) fL MCH 28.0 (27.0-32.0) pg MCHC 33.5 (31.0-37.0) g/dL RDW Std Deviation 44.2 (28.0-62.0) fl RDW Coeff of Amol 14 (11.0-15.0) % Plt Count 288 (150-400) K/uL MPV 10.00 (7.40-12.00) fL Neut % (Auto) 65.4 (48.0-80.0) % Lymph % (Auto) 18.4 (16.0-40.0) % Rowan % (Auto) 8.6 (0.0-15.0) % Eos % (Auto) 7.0 (0.0-7.0) % Baso % (Auto) 0.6 (0.0-1.5) % Neut # (Auto) 8.5 H (1.4-5.7) K/uL Lymph # (Auto) 2.4 (0.6-2.4) K/uL Rowan # (Auto) 1.1 H (0.0-0.8) K/uL Eos # (Auto) 0.9 H (0.0-0.7) K/uL Baso # (Auto) 0.1 (0.0-0.1) K/uL Nucleated RBC % 0.0 /100WBC Nucleated RBCs # 0 K/uL Sodium 135 L (136-145) mmol/L Potassium 3.7 (3.5-5.1) mmol/L Chloride 100 (98-107) mmol/L Carbon Dioxide 25.1 (21.0-32.0) mmol/L BUN 12 (7.0-18.0) mg/dL Creatinine 0.9 (0.6-1.0) mg/dL Est Cr Clr Drug Dosing 79.35 mL/min Estimated GFR (MDRD) > 60.0 ml/min Glucose 200 H (74-106) mg/dL Calcium 9.6 (8.5-10.1) mg/dL Total Bilirubin 0.4 (0.2-1.0) mg/dL AST 18 (15-37) IU/L ALT 28 (14-63) IU/L Alkaline Phosphatase 126 H (46-116) U/L Total Protein 8.0 (6.4-8.2) g/dL Albumin 3.7 (3.4-5.0) g/dL Globulin 4.3 H (2.6-4.0) g/dL Albumin/Globulin Ratio 0.9 (0.9-1.6) Meds: Medications Discontinued Medications Generic Name Dose Route Start Last Admin Trade Name Freq PRN Reason Stop Dose Admin Sodium Chloride 1,000 mls @ 1,000 mls/hr 11/18/19 16:42 11/18/19 17:13 Normal Saline IV 11/18/19 17:41 1,000 mls/hr .Bolus ONE Administration Cefazolin Sodium/Dextrose 1 gm 50 mls @ 100 mls/hr 11/18/19 16:44 11/18/19 17 :13 / Premix IV 11/18/19 17:13 100 mls/hr ONETIME ONE Administration Departure - Departure Time of Disposition: 18:55 Disposition: DC/Tfer to Acute Hospital 02 Condition: Good Clinical Impression: Cellulitis Qualifiers: Site of cellulitis: extremity Site of cellulitis of extremity: upper extremity Laterality: right Qualified Code(s): L03.113 - Cellulitis of right upper limb - Discharge Information Referrals: Gerardo Worthington MD [Primary Care Provider] - Forms: ED Department Discharge Sepsis Event Note - Evaluation Sepsis Screening Result: No Definite Risk - Focused Exam Vital Signs: Vital Signs Temp Pulse Resp BP Pulse Ox 11/18/19 18:00 96 17 115/88 99 11/18/19 17:19 105 H 16 153/81 H 96 11/18/19 16:26 97.6 F 127 H 18 152/91 H 98 Date Exam was Performed: 11/18/19 Time Exam was Performed: 18:53
[2019-11-18] MEDS ORDERED: Sodium Chloride 0.9% 1,000 ML IV ONE (16:42)
[2019-11-18] MEDS ORDERED: ceFAZolin 1 GM in Premix Bag 1 BAG IV ONE (16:44)
[2019-11-18 17:44] LABS: BLOOD UREA NITROGEN,BUN 12 mg/dL (7.0-18.0); CARBON DIOXIDE,CO2 25.1 mmol/L (21.0-32.0); CHLORIDE,CL 100 mmol/L (98-107); GLUCOSE RANDOM 200 mg/dL (74-106); POTASSIUM,K 3.7 mmol/L (3.5-5.1); SODIUM,NA 135 mmol/L (136-145)
--- NOTE | 2019-11-18 17:49 | CR ---
Indication: Chest pain Technique: Chest 1 view Comparison: 10/17/2017 Findings/Impression: Cardiovascular and mediastinum: Grossly stable cardiomediastinal silhouette, allowing for differences in technique. Lungs and pleural space: Lungs are clear. No sign of infiltrate or mass. No sign of pleural effusion. No pneumothorax. Bones and soft tissues: Apparent partially imaged area of mild sclerosis in the right humeral metaphysis which could be projectional. Follow-up with additional views. Dictated by Moses Carey MD @ 11/18/2019 5:46:25 PM Dictated by: Moses Carey MD @ 11/18/2019 17:47:27 (Electronically Signed)
--- NOTE | 2019-11-18 17:49 | CR ---
INDICATION: Bone on 1st digit; rule out osteomyelitis. Comparison: None. TECHNIQUE: Two-view study right hand. FINDINGS: Cystic changes identified involving the proximal half of the distal phalanx of the right thumb. No pathology involving the interphalangeal articulation. Rest of the radiographic examination of the right hand is unremarkable. Suggest obtaining an MR of the right thumb for further assessment and to rule out osteomyelitis. Impression : Erosive changes identified involving the proximal end distal phalanx of the right thumb. Dictated by Glenn Philippe MD @ Nov 18 2019 5:44PM Signed by Dr. Glenn Philippe @ Nov 18 2019 5:47PM
[2019-11-18 18:58] VITALS: BP 142/72; PULSE 116
== END 2019-11-18 19:11 ==
LOC: MW.ED 16:04
DX: L03.113 Cellulitis of right upper limb (principal); I10 Essential (primary) hypertension; M19.90 Unspecified osteoarthritis, unspecified site; G43.909 Migraine, unspecified, not intractable, without status migrainosus; E11.42 Type 2 diabetes mellitus with diabetic polyneuropathy; Z90.89 Acquired absence of other organs; Z90.710 Acquired absence of both cervix and uterus; Z88.8 Allergy status to other drugs, medicaments and biological substances; Z79.4 Long term (current) use of insulin; Z79.899 Other long term (current) drug therapy; Z88.1 Allergy status to other antibiotic agents
CPT/HCPCS: 36415; 71045; 73120; 80053; 85025; 96365; 99284; J0690; J7030; 99283